=== PATIENT | female | born 1980 | race Caucasian/White ===

== ENCOUNTER 2020-04-17 16:57 | Emergency (ER) | payer OTHER, SELFPAY ==
--- NOTE | ~2020-04-17 | XR_ITS ---
EXAMINATION: XR chest 1V portable DATE: 04/17/2020 19:41 INDICATION: Shortness of breath and cough and fever. TECHNIQUE: A single frontal view of the chest was obtained. COMPARISON: CT abdomen and pelvis 09/04/17 FINDINGS: The chest demonstrates clear lungs without pneumonia, pleural effusion, or pneumothorax. Th e heart size is normal. IMPRESSION: 1. No acute cardiopulmonary disease. Reviewed, dictated and finalized at location A. [employer] [employer]
[2020-04-17 17:18] VITALS: BP 160/104; PULSE 87; RESP 17; TEMP 36.2; O2SAT 99
--- NOTE | 2020-04-17 17:27 | ECG_ITS ---
Measurements Intervals [place] Rate: 83 P: 51 DC: 149 QRS: 41 QRSD: 80 T: 71 QT: 340 QTc: 401 Interpretive Statements SINUS RHYTHM POSSIBLE LEFT ATRIAL ENLARGEMENT MINIMAL Q WAVES- HIGH LATERAL LEADS NONSPECIFIC T-WAVE ABNORMALITY- INF/LAT LEADS BASELINE ARTIFACT- I, II, III BORDERLINE ECG Electronically Signed On 04-17-2020 20:01:55 DIRECTOR INTEGRATED by Tyrone Wisdom D.O.
[2020-04-17 17:45] LABS: Basophils Percent Auto 0.4 % (0.2-1.2); Eosinophils Absolute Auto 0.3 K/mm3 (0-0.3); Eosinophils Percent Auto 2.8 % (0-4.4); Hematocrit 29.4 % (37.0-47.0); Hemoglobin 8.2 g/dL (12.0-15.0); Immature Granulocyte Absolute 0.05 K/mm3 (0.00-0.031); Immature Granulocyte Percent A 0.5 % (0-0.5); Lymphocytes Absolute Auto 2.91 K/mm3 (0.9-3.2); Lymphocytes Percent Auto 26.9 % (18.3-44.2); Mean Corpuscular HGB Conc 27.9 g/dl (32-36); Mean Corpuscular Hemoglobin 18.1 pg (26-34); Monocytes Absolute Auto 0.9 K/mm3 (0.1-0.6); Monocytes Percent Auto 7.9 % (2.6-8.5); Neutrophils Absolute Auto 6.7 K/mm3 (1.3-6.7); Neutrophils Percent Auto 61.5 % (45.5-73.1); Platelet Count Result 485 k/mm3 (150-375); Red Blood Count 4.52 M/mm3 (4.2-5.4); Red Cell Distribution Width 21.1 % (11.5-14.5); White Blood Count 10.8 K/mm3 (4.5-10.0)
[2020-04-17 17:52] LABS: Hypochromasia 1+ (NORMAL); Ovalocytes 1+ (NORMAL); Platelet Estimate Increased (Adequate)
[2020-04-17 17:56] LABS: Anion Gap 10 mmol/L (8-16); Blood Urea Nitrogen 13 mg/dL (7-17); Calcium 9.3 mg/dL (8.4-10.2); Carbon Dioxide 25 mmol/L (22-30); Chloride 104 mmol/L (98-107); Estimated CRCL calculation 98 ml/min; Estimated Glomerular Filt Rate > 60; Glucose 110 mg/dL (65-105); Sodium 139 mmol/L (137-145)
[2020-04-17 19:42] VITALS: BP 160/88
[2020-04-17 19:44] VITALS: PULSE 82; RESP 19; O2SAT 100
--- NOTE | 2020-04-17 19:52 | ED.GENADULT ---
HPI - General Adult General Chief complaint: Upper Respiratory Infection <Cecil Jefferson PA-C - Last Filed: 04/17/20 19:58> Stated complaint: sob/fever <Cecil Jefferson PA-C - Last Filed: 04/17/20 19:58> Time Seen by Provider: 04/17/20 19:28 <Cecil Jefferson PA-C - Last Filed: 04/17/20 19:58> Source: patient <Cecil Jefferson PA-C - Last Filed: 04/17/20 19:58> Mode of arrival: ambulatory <Cecil Jefferson PA-C - Last Filed: 04/17/20 19:58> Limitations: no limitations <Cecil Jefferson PA-C - Last Filed: 04/17/20 19:58> History of Present Illness HPI narrative: Patient is a 39-year-old female who presents with 3 to 4 days of upper respiratory symptoms noting productive cough shortness of breath fever chills body aches congestion patient notes possible exposure to Covid patient notes she had had some loose stools denies vomiting patient on arrival resting comfortably in the room in no distress felt appropriate for testing of Covid patient otherwise in no distress does not appear uncomfortable <Cecil Jefferson PA-C - Last Filed: 04/17/20 19:58> Related Data Allergies/adverse reactions: Allergies Allergy/AdvReac Type Severity Reaction Status Date / Time amoxicillin Allergy Unknown Hives Verified 04/17/20 17:22 <Cecil Jefferson PA-C - Last Filed: 04/17/20 19:58> Review of Systems Review of Systems: All systems reviewed & are unremarkable except as noted in HPI and below <Cecil Jefferson PA-C - Last Filed: 04/17/20 19:58> [facility] Past Medical History Medical History: Medical History (Updated 04/17/20 @ 19:57 by Cecil Jefferson PA-C) Anxiety <Cecil Jefferson PA-C - Last Filed: 04/17/20 19:58> Family History Family History: Family History (Updated 08/30/17 @ 08:00 by DOCTOR UNKNOWN) Father Diabetes mellitus Hypertension Mother Diabetes mellitus Hypertension Other Asthma Family history of attention deficit hyperactivity disorder (ADHD) Family history of obesity <Cecil Jefferson PA-C - Last Filed: 04/17/20 19:58> Social History Social History: Social History Smoking status: Former smoker Smoking end date: 05/22/14 <Cecil Jefferson PA-C - Last Filed: 04/17/20 19:58> Exam Narrative: Exam Narrative: GENERAL: Well-appearing, obese, and in no acute distress. HEAD: Normocephalic, atraumatic. EYES: PERRLA and EOMI. ENT: Nares clear, no rhinorrhea or epistaxis. Mucous membranes moist. CHEST: Clear to auscultation. No respiratory distress. No wheezes rales or rhonchi HEART: Regular rate and rhythm. No murmur heard. EXTREMITIES: Normal range of motion. No edema. SKIN: Warm, dry, no rash. NEURO: No focal deficits. Alert and oriented x3. Cranial nerves II through XII grossly intact PSYCH: Normal mood and affect. <Cecil Jefferson PA-C - Last Filed: 04/17/20 19:58> Course Course Emergency Course: Patient in the room in no distress will be tested for Covid no pneumonia or hypoxemia seen on exam felt appropriate for outpatient reevaluation will contact her primary care to get her results patient also provided with reasons to return and will be treated symptomatically <Cecil Jefferson PA-C - Last Filed: 04/17/20 19:58> Vital Signs Vital signs: Vital Signs Temperature 36.2 C L 04/17/20 17:18 Pulse Rate 87 04/17/20 17:18 Respiratory Rate 17 04/17/20 17:18 Blood Pressure 160/104 H 04/17/20 17:18 Pulse Oximetry 99 04/17/20 17:18 Temperature 36.2 C L 04/17/20 17:18 Pulse Rate 79 04/17/20 20:10 Respiratory Rate 17 04/17/20 20:10 Blood Pressure 157/80 H 04/17/20 20:10 Pulse Oximetry 98 04/17/20 20:10 <Cecil Jefferson PA-C - Last Filed: 04/17/20 19:58> Vital Signs Temperature 36.2 C L 04/17/20 17:18 Pulse Rate 87 04/17/20 17:18 Respiratory Rate 17 04/17/20 17:18 Blood Pressure 160/104 H 03/23
[2020-04-17 20:10] VITALS: BP 157/80; PULSE 79; RESP 17; O2SAT 98
[2020-04-18 13:43] LABS: SARS-CoV-2 RNA PCR Negative
== END 2020-04-17 20:10 | disposition home or self-care (01) ==
PROVIDERS: Emergency Medicine; Emergency Medicine Emergency Medical Services; Emergency Provider Emergency Medicine
DX: J06.9 Acute upper respiratory infection, unspecified (principal); Z20.828 Contact with and (suspected) exposure to other viral communicable diseases; R94.31 Abnormal electrocardiogram [ECG] [EKG]
CPT/HCPCS: 36415; 71045; 80048; 85025; 87635; 93005; 99283; C9803; U0003

== ENCOUNTER 2020-07-20 14:58 | Observation (INO) | payer OTHER, SELFPAY ==
[2020-07-20] VITALS (22 sets, daily range): BP systolic 122–160; BP diastolic 57–117; PULSE 80–102; RESP 15–23; TEMP 36.3–37.2; O2SAT 99–100; BMI 49.8
--- NOTE | ~2020-07-20 | CT_ITS ---
EXAMINATION: CT abdomen pelvis w con EXAM DATE: 07/20/2020 16:56 INDICATION: Abdominal pain, hematochezia. Rectal bleeding. TECHNIQUE: Spiral CT of the abdomen and pelvis was performed following intravenous injection of 100 m L Omnipaque 350. Axial, coronal and sagittal images were reviewed. The dose-length product (DLP) fo r this examination was 1501.20 mGy-cm. The exposure was tailored according to patient size (auto mA exposure control), and iterative reconstruction (ASIR) was used as additional dose reduction techniqu e. Comparison is made to prior examination from 09/04/2017. FINDINGS: The liver, spleen, adrenal glands and pancreas are unremarkable. Gallbladder is unremarkab le. No biliary obstruction. Portal and splenic veins are patent. Kidneys enhance symmetrically. T here is no hydronephrosis. The uterus is unremarkable. The bladder is unremarkable. There is no retroperitoneal or pelvic lymphadenopathy. Small umbilical fat-containing hernia. The appendix is normal. There is mild descending, sigmoid colonic diverticulosis. There is no adjace nt inflammatory change to suggest diverticulitis. The stomach and small bowel are unremarkable. Ther e is expected amount of colonic stool. No free intraperitoneal gas. The heart is normal in size. There are no pericardial or pleural effusions. The lung bases are unremarkable. There are no osteo blastic or osteolytic lesions identified. IMPRESSION: 1. No acute intra-abdominal findings. 2. Mild colonic diverticulosis. Reviewed, dictated and finalized at location A. SAWYER
[2020-07-20 15:23] LABS: Basophils Absolute Auto 0.1 K/mm3 (0.0-0.1); Basophils Percent Auto 0.5 % (0.2-1.2); Eosinophils Absolute Auto 0.3 K/mm3 (0-0.3); Eosinophils Percent Auto 2.9 % (0-4.4); Hematocrit 23.2 % (37.0-47.0); Immature Granulocyte Absolute 0.08 K/mm3 (0.00-0.031); Immature Granulocyte Percent A 0.8 % (0-0.5); Lymphocytes Absolute Auto 2.42 K/mm3 (0.9-3.2); Lymphocytes Percent Auto 23.9 % (18.3-44.2); Mean Corpuscular HGB Conc 27.6 g/dl (32-36); Mean Corpuscular Hemoglobin 19.5 pg (26-34); Mean Corpuscular Volume 70.5 fl (80-100); Mean Platelet Volume 9.7 fl (7.4-10.4); Monocytes Absolute Auto 0.8 K/mm3 (0.1-0.6); Monocytes Percent Auto 7.5 % (2.6-8.5); Neutrophils Absolute Auto 6.5 K/mm3 (1.3-6.7); Neutrophils Percent Auto 64.4 % (45.5-73.1); Nucleated Red Blood Cells Perc 0.2 % (0.0-0.2); Platelet Count Result 416 k/mm3 (150-375); Red Blood Count 3.29 M/mm3 (4.2-5.4); Red Cell Distribution Width 20.2 % (11.5-14.5); White Blood Count 10.1 K/mm3 (4.5-10.0)
[2020-07-20 15:33] LABS: Partial Thromboplastin Time 23.6 SECONDS (22.3-36.8); Prothrombin Time 13.5 Seconds (11.1-14.7)
[2020-07-20 15:35] LABS: Hemoglobin 6.4 g/dL (12.0-15.0)
[2020-07-20 15:36] LABS: Hypochromasia 2+ (NORMAL); Microcytosis 1+ (NORMAL); Platelet Estimate Adequate (Adequate)
[2020-07-20 15:38] LABS: Alanine Aminotransferase 16 U/L (4-35); Alkaline Phosphatase 74 U/L (38-126); Anion Gap 6 mmol/L (8-16); Aspartate Amino Transferase 19 U/L (14-36); Bilirubin,Total 0.3 mg/dL (0.2-1.3); Blood Urea Nitrogen 9 mg/dL (7-17); Calcium 8.9 mg/dL (8.4-10.2); Carbon Dioxide 28 mmol/L (22-30); Chloride 106 mmol/L (98-107); Estimated CRCL calculation 82 ml/min; Estimated Glomerular Filt Rate > 60; Glucose 125 mg/dL (65-105); Potassium 3.9 mmol/L (3.4-5.0); Sodium 140 mmol/L (137-145)
--- NOTE | 2020-07-20 16:26 | ED.GIBLEED ---
HPI - GI Bleed General Chief complaint: GI Bleed <Cherry Linares PA-C - Last Filed: 07/20/20 18:58> Stated complaint: rectal bleeding <Cherry Linares PA-C - Last Filed: 07/20/20 18:58> Time Seen by Provider: 07/20/20 16:10 <Cherry Linares PA-C - Last Filed: 07/20/20 18:58> Source: patient <Cherry iLnares PA-C - Last Filed: 07/20/20 18:58> Mode of arrival: ambulatory <Cherry Linares PA-C - Last Filed: 07/20/20 18:58> Limitations: no limitations <Cherry Linares PA-C - Last Filed: 07/20/20 18:58> History of Present Illness HPI Narrative: This is a 39 year old female that presents to the ER for bright red blood per rectum x 2 weeks. Associated with loose stools and intermittent crampy abdominal pain. Does report history of hemorrhoids. She reports she has also been getting lightheaded upon standing the last couple of days. Denies fever, nausea, or vomiting. <Cherry Linares PA-C - Last Filed: 07/20/20 18:58> Related Data Allergies/Adverse reactions: Allergies Allergy/AdvReac Type Severity Reaction Status Date / Time amoxicillin Allergy Unknown Hives Verified 07/20/20 15:15 <Cherry Linares PA-C - Last Filed: 07/20/20 18:58> Review of Systems Review of Systems: Narrative: CONSTITUTIONAL: Denies fever GASTROINTESTINAL: Reports abdominal pain, and diarrhea. Denies nausea or vomiting <Cherry Linares PA-C - Last Filed: 07/20/20 18:58> All systems reviewed & are unremarkable except as noted in HPI and below <Cherry Linares PA-C - Last Filed: 07/20/20 18:58> [facility] Past Medical History Medical History: Medical History (Updated 07/20/20 @ 18:31 by Cherry Linares PA-C) Anxiety <Cherry Linares PA-C - Last Filed: 07/20/20 18:58> Family History Family History: Family History (Updated 08/30/17 @ 08:00 by DOCTOR UNKNOWN) Father Diabetes mellitus Hypertension Mother Diabetes mellitus Hypertension Other Asthma Family history of attention deficit hyperactivity disorder (ADHD) Family history of obesity <Cherry Linares PA-C - Last Filed: 07/20/20 18:58> Social History Social History: Social History Smoking status: Former smoker Smoking end date: 05/22/14 Gender identity (if verbalized by the patient): Female <Cherry Linares PA-C - Last Filed: 07/20/20 18:58> Exam Narrative: Exam Narrative: GENERAL: Pale, well-nourished, and in no acute distress. HEAD: Normocephalic, atraumatic. EYES: EOMI. ENT: Mucous membranes moist. Oropharynx without tonsillar hypertrophy exudate or other lesions. NECK: Supple. No adenopathy or masses. CHEST: Clear to auscultation. No respiratory distress. No wheezes rales or rhonchi HEART: Regular rate and rhythm. No murmur heard. Normal peripheral pulses. ABDOMEN: Soft, nondistended, normal active bowel sounds. Mild tenderness to palpation throughout the right side of the abdomen, without guarding EXTREMITIES: Normal range of motion. No edema. SKIN: Warm, dry, no rash. NEURO: No focal deficits. Alert and oriented x3. PSYCH: Normal mood and affect <Cherry Linares PA-C - Last Filed: 07/20/20 18:58> Course HEAD INSULATION BOARD SAW OPERATOR/PA Physician Supervision For this patient encounter, I reviewed the HEAD INSULATION BOARD SAW OPERATOR or PA documentation, treatment plan, and medical decision making; and I had [id number] time with this patient. <Veronica Gomez MD - Last Filed: 07/20/20 19:02> Consultations Consultation #1: Spoke with Dr. Amanda about patient and work-up. Would like patient to be given GoLYTELY and Dulcolax and be made n.p.o. at midnight for EGD and colonoscopy tomorrow. Patient will also be started on Protonix. He will consult <Cherry Linares PA-C - Last Filed: 03/01/21 18:58> Vital Signs Vital signs: Vital Signs Temperature 36.3 C L 07/20/20 15:11 Pulse Rate 102 H 07/20/20 15:11 Respiratory Rate 20 07/20/20 15:11 Blood Pressur
--- NOTE | 2020-07-20 16:34 | PC.NURSE ---
pt states is no way she is and will sign waiver
[2020-07-20] MEDS: PANTOPRAZOLE SODIUM IV 40 MG VIAL 80 MG IV PUSH (19:35)
[2020-07-20] MEDS: BISACODYL 10 MG SUPPOSITORY RECTAL (19:35)
--- NOTE | 2020-07-20 19:56 | PC.NURSE ---
Assumed care of pt. this time. Report from YASSINE Crump
--- NOTE | 2020-07-20 20:15 | ADMGEN ---
This patient, Amarilys Jerez, was admitted to Medical Room 342-01. Patient/family oriented to hospital policies and general routines including ID bracelet, bed and alarms, visiting hours, pain management, procedures, bathroom and other care routines, personal items, smoking policy, room service/diet, and visiting hours. Information on how to activate the Rapid Response Team has been discussed. Patient/Family are encouraged to report perceived risks to care and to ask questions if they do not understand what they are told or what they should do.
[2020-07-20] MEDS: polyethylene glycoL 3350 238 GM BOTTLE PO (20:17)
[2020-07-20] MEDS: SODIUM CHLORIDE 0.9% IV 250 ML 30 ML IV CONT (20:17)
[2020-07-21] VITALS (12 sets, daily range): BP systolic 98–156; BP diastolic 49–88; PULSE 66–85; RESP 12–21; TEMP 35.8–36.6; O2SAT 95–100
[2020-07-21] MEDS: ONDANSETRON INJ 4 MG/2 ML VIAL IV PUSH (01:13)
[2020-07-21 02:04] LABS: Hemoglobin 8.6 g/dL (12.0-15.0)
[2020-07-21 05:58] LABS: Hematocrit 28.1 % (37.0-47.0); Hemoglobin 8.4 g/dL (12.0-15.0)
[2020-07-21 06:18] LABS: Anion Gap 5 mmol/L (8-16); Blood Urea Nitrogen 9 mg/dL (7-17); Calcium 8.6 mg/dL (8.4-10.2); Carbon Dioxide 28 mmol/L (22-30); Chloride 107 mmol/L (98-107); Estimated CRCL calculation 119 ml/min; Estimated Glomerular Filt Rate > 60; Glucose 110 mg/dL (65-105); Potassium 4.1 mmol/L (3.4-5.0); Sodium 140 mmol/L (137-145)
[2020-07-21 07:08] LABS: Ferritin 5.74 ng/mL (6.24-137)
[2020-07-21] MEDS: PANTOPRAZOLE SODIUM IV 40 MG VIAL IV PUSH (08:53)
[2020-07-21] MEDS: FLUTICASONE PROPIONATE 0.05% NA SPR 16 GM BTL (*BKC) 2 SPRAY NASAL (10:21)
[2020-07-21] MEDS: SODIUM CHLORIDE 0.9% INJ 10 ML 100 ML (10:22)
[2020-07-21] MEDS: LACTATED RINGERS 1,000 ML 150 ML IV CONT ×2 (11:07→12:32)
--- NOTE | 2020-07-21 11:14 | WPDGICN ---
Assessment and Plan Assessment and plan (1) GI bleed: Qualifiers: GI bleed type/associated pathology: unspecified gastrointestinal hemorrhage type Qualified Code(s): K92.2 - Gastrointestinal hemorrhage, unspecified Code(s): K92.2 - Gastrointestinal hemorrhage, unspecified Status: Acute Assessment and Plan: will proceed with colonoscopy to assess source of bleeding (differential include AVM's, diverticular bleed, colitis or even malignancy), also EGD because patient required blood transfusion and had symptomatic anemia, also need to rule out upper GI source (2) Acute blood loss anemia: Code(s): D62 - Acute posthemorrhagic anemia Status: Acute Assessment and Plan: she already received blood transfusion continue to monitor for more signs of bleeding more recommendations after scopes today (3) Rectal bleeding: Code(s): K62.5 - Hemorrhage of anus and rectum Status: Acute (4) Bloating: Code(s): R14.0 - Abdominal distension (gaseous) Status: Acute Assessment and Plan: will do EGD as well (5) Nausea: Code(s): R11.0 - Nausea Status: Acute (6) Lower abdominal pain: Code(s): R10.30 - Lower abdominal pain, unspecified Status: Acute Assessment and Plan: CT scan without colitis GI Consult Note Consult date/time: 07/21/20 11:14 Reason for consult: rectal bleeding, symptomatic anemia HPI: Amarilys Jerez is a 39 year old female with no major medical problems with almost 2 weeks on bright red blood per rectum, also noted intermittent loose stools with intermittent moderate crampy abdominal pain and bloating, she also was nauseous but no vomiting. She thinks that had hemorrhoids but never had scopes. Also was feeling weak and lightheaded, finally decided to come here. Denies heavy uterine bleeding. Denies using nsaid's, seldom will take aspirin. ER labs reviewed, microcytosis, hb 6.4 and received 2 units of PRBC now hb 8.6. CT scan reviewed without acute intra-abdominal findings, mild colonic diverticulosis. Review of Systems Constitutional: Constitutional: Reports fatigue Eyes: Eyes: Reports no additional eye complaints ENT: Reports system reviewed and no additional complaints, except as documented Cardiovascular: Cardiovascular: Denies chest pain Respiratory: Respiratory: Reports no additional respiratory complaints Gastrointestinal: Gastrointestinal: Reports abdominal pain, Reports hematochezia and Reports nausea Genitourinary: Genitourinary: Denies hematuria Musculoskeletal: Musculoskeletal: Denies neck pain Integumentary/Breasts: Skin/Breast: Denies rash Neurologic: Denies confusion Comments: lightheadedness Psychiatric: Psychiatric: Denies behavioral changes Endocrine: Endocrine: Denies cold intolerance PMFSH Past Medical History Medical History (Updated 07/21/20 @ 11:18 by Raf Greene MD) Acute blood loss anemia Anxiety Bloating Lower abdominal pain Nausea Rectal bleeding Family History Family History Father Diabetes mellitus Hypertension Mother Diabetes mellitus Hypertension Other Asthma Family history of attention deficit hyperactivity disorder (ADHD) Family history of obesity Social History Social History Smoking status: Never smoker Second hand tobacco smoke exposure: Yes Smoking end date: 05/22/14 Alcohol intake: never Substance use: never Substance use type: does not use Gender identity (if verbalized by the patient): Female Spiritual care concerns: No Meds Home Medications and Allergies Home Medications Medication Instructions Recorded Confirmed Type fluticasone propionate [Flonase 2 spray INTRANASAL DAILY #9.9 ml 04/17/20 07/20/20 Rx Allergy Relief] venlafaxine [Effexor XR] 150 mg PO DAILY 07/20/20 07/20/20
--- NOTE | 2020-07-21 11:31 | WPDANESEPPF ---
Anes - Initial Pre Proc Eval Procedure: Operation Date: 07/21/20 15:15 Proposed Procedures p Esophagogastroduodenoscopy & Colonoscopy - Raf Greene MD Date/Time: 07/21/20 11:31 Surgeon: Ivet Tiwari PA-C Pre Op Diagnosis: GI Bleed, anemia Patient Data Age: 39 Gender: F Height: 5 ft 3 in Weight: 127.6 kg Last Vital Signs Temp 97.8 F 07/21/20 11:00 Pulse 66 07/21/20 11:00 Resp 12 07/21/20 11:00 BP 144/75 H 07/21/20 11:00 Pulse Ox 100 07/21/20 11:00 Allergies Allergy/AdvReac Type Severity Reaction Status Date / Time amoxicillin Allergy Unknown Hives Verified 07/21/20 10:54 Home Medications Medication Instructions Recorded Confirmed Type fluticasone propionate [Flonase 2 spray INTRANASAL DAILY #9.9 ml 04/17/20 07/20/20 Rx Allergy Relief] venlafaxine [Effexor XR] 150 mg PO DAILY 07/20/20 07/20/20 History Laboratory Tests 07/20/20 07/20/20 07/20/20 15:17 15:17 15:17 WBC 10.1 K/mm3 H K/mm3 (4.5-10.0) RBC 3.29 M/mm3 L M/mm3 (4.2-5.4) Hgb 6.4 g/dL L* g/dL (12.0-15.0) Hct 23.2 % L % (37.0-47.0) MCV 70.5 fl L fl (80-100) MCH 19.5 pg L pg (26-34) MCHC 27.6 g/dl L g/dl (32-36) RDW 20.2 % H % (11.5-14.5) Plt Count 416 k/mm3 H k/mm3 (150-375) MPV 9.7 fl fl (7.4-10.4) Immature Gran % (Auto) 0.8 % H % (0-0.5) Neut % (Auto) 64.4 % % (45.5-73.1) Lymph % (Auto) 23.9 % % (18.3-44.2) [place] % (Auto) 7.5 % % (2.6-8.5) Eos % (Auto) 2.9 % % (0-4.4) Baso % (Auto) 0.5 % % (0.2-1.2) Lymph # (Auto) 2.42 K/mm3 K/mm3 (0.9-3.2) [place] # (Auto) 0.8 K/mm3 H K/mm3 (0.1-0.6) Eos # (Auto) 0.3 K/mm3 K/mm3 (0-0.3) Baso # (Auto) 0.1 K/mm3 K/mm3 (0.0-0.1) Abs Immat Gran (auto) 0.08 K/mm3 H K/mm3 (0.00-0.031) Absolute Neuts (auto) 6.5 K/mm3 K/mm3 (1.3-6.7) Absolute Nucleated RBC 0.0 K/mm3 K/mm3 (0.0-0.012) Nucleated RBC % 0.2 % % (0.0-0.2) Platelet Estimate Adequate (Adequate) Hypochromasia 2+ (NORMAL) Microcytosis 1+ (NORMAL) PT 13.5 Seconds Seconds (11.1-14.7) INR 1.0 APTT 23.6 SECONDS SECONDS (22.3-36.8) Sodium 140 mmol/L mmol/L (137-145) Potassium 3.9 mmol/L mmol/L (3.4-5.0) Chloride 106 mmol/L mmol/L (98-107) Carbon Dioxide 28 mmol/L mmol/L (22-30) Anion Gap 6 mmol/L L mmol/L (8-16) BUN 9 mg/dL mg/dL (7-17) Creatinine 1.00 mg/dL mg/dL (0.7-1.0) Estim Creat Clear Calc 82 ml/min ml/min Estimated GFR > 60 (59 - ) Glucose 125 mg/dL H mg/dL (65-105) Calcium 8.9 mg/dL mg/dL (8.4-10.2) Magnesium Ferritin Total Bilirubin 0.3 mg/dL mg/dL (0.2-1.3) AST 19 U/L U/L (14-36) ALT 16 U/L U/L (4-35) Alkaline Phosphatase 74 U/L U/L (38-126) Total Protein 8.0 g/dL g/dL (6.3-8.2) Albumin 4.0 g/dL g/dL (3.5-5.1) TSH (Reflex) Blood Type Antibody Screen Crossmatch 07/20/20 07/21/20 07/21/20 15:17 01:54 05:38 WBC RBC Hgb 8.6 g/dL L g/dL 8.4 g/dL L g/dL (12.0-15.0) (12.0-15.0) Hct 29.0 % L % 28.1 % L % (37.0-47.0) (37.0-47.0) MCV MCH MCHC RDW Plt Count MPV Immature Gran % (Auto) Neut % (Auto) Lymph % (Auto) [place] % (Auto) Eos % (Auto) Baso % (Auto) Lymph # (Auto) [place] # (Auto) Eos # (Auto) Baso # (Auto) Abs Immat Gran (auto) Abso
[2020-07-21] MEDS: BENZOCAINE (*SP) 60 ML SPRAY CAN (HURRICAINE) 1 SPRAY MUCOUS MEM (11:57)
[2020-07-21] MEDS: VENLAFAXINE HCL XR 75 MG CAP.ER.24H 150 MG PO (13:25)
--- NOTE | 2020-07-21 14:30 | PC.NURSE ---
Supervised patient care and reviewed documentation for COUNT INCLUDES THE [facility] Student nurse Leah Quintanilla
[2020-07-21 15:02] LABS: Hematocrit 28.9 % (37.0-47.0); Hemoglobin 8.6 g/dL (12.0-15.0)
--- NOTE | 2020-07-21 16:36 | PM.SD2 ---
Same Day Admit/Disch: HPI History of Present Illness Chief complaint: GI Bleed, anemia Narrative: Amarilys Jerez is a 39 year old female with a history of fibromyalgia, anxiety, dyslipidemia, presented to the emergency room for dark tarry stools for the last 2 weeks. Patient does have a history of hemorrhoids, but states her stools have been dark in nature as well as passing clots. She has had similar issues in the past but it has only occurred for a couple a days, and this episode has been waxing and waning over the last few weeks. She does have a history of constipation, but denies any increased straining recently. She has been feeling abdominal bloating and intermittent cramping. She came into the emergency room because of increased fatigue, lightheadedness and was feeling slightly disoriented. She also reported some shortness of breath with exertion and intermittent nausea associated with her bloatedness. She denies any history of heartburn, GERD, vomiting, or any other symptoms. Denies any chest pain, fever, chills, dizziness, diarrhea, leg swelling, calf pain, urinary issues, vaginal bleeding, or any other symptoms at this time. Initially vitals showed she was afebrile, blood pressure slightly elevated 146/78, slightly tachycardic at 102, respiratory rate 20, oxygen saturation 99% on room air. Initial labs showed slight leukocytosis at 10,100, no elevated neutrophils for signs of infection, critical microcytic anemia with a hemoglobin of 6.4, hematocrit 23%. Normal coag panel. Normal CMP. CT abdomen/pelvis showed no acute intracranial abdominal findings. Mild colonic diverticulosis. Patient was admitted to the hospital for acute anemia due to GI bleeding. Patient had 2 units of PRBCs infused. GI was consulted and she was prepped for an EGD and colonoscopy on 07/21/2020. EGD showed gastric ulcer which can explain her anemia. There is no signs of active bleeding during EGD. Recommended PPI 40 mg b.i.d. and to avoid NSAIDs or aspirin. Colonoscopy was completed showing diverticulosis without perforation, abscess or bleeding. Internal hemorrhoids and anal skin tags were also noted but no active bleeding. Dr. Vasiliy FRASER recommended Anusol Supp BID for 7 days. After her procedure her diet was advanced without any issues. She was feeling much better. Her H&H was stable with a hemoglobin of 8.6, hematocrit 28%. Patient is feeling much better and stable for discharge at this time to follow-up with the GI specialist in 3 weeks. Recommended to start iron supplementation twice daily. Will recheck CBC in 2 weeks prior to her GI follow-up. Patient understands and agrees with the plan all questions answered. [facility] Past Medical History Medical History (Updated 07/21/20 @ 16:40 by Ivet Tiwari PA-C) Acute blood loss anemia Allergies Anxiety Bloating Fibromyalgia HLD (hyperlipidemia) Leg edema Lower abdominal pain Nausea Rectal bleeding Surgical History Surgical History (Updated 07/21/20 @ 16:40 by Ivet Tiwari PA-C) H/O tubal ligation History of endometrial ablation Hx of arthroscopic knee surgery Right knee 2003 Family History Family History Father Diabetes mellitus Hypertension Mother Diabetes mellitus Hypertension Other Asthma Family history of attention deficit hyperactivity disorder (ADHD) Family history of obesity Social History Social History (Updated 07/21/20 @ 16:40 by Ivet Tiwari PA-C) Smoking status: Former smoker Second hand tobacco smoke exposure: Yes Smoking end date: 05/22/14 Alcohol intake: never Substance use: never Substance use type: does not use Additional living arrangements comments: Lives in [place], [place] Occupation/Education: occupation Additional occupation/education comments: 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
== END 2020-07-21 17:30 | disposition home or self-care (01) ==
LOC: ANHED 18:56 → ANH3MED 20:04
PROVIDERS: Internal Medicine Gastroenterology; Nurse Practitioner; Admitting Provider Family Medicine; Emergency Provider Emergency Medicine; Visit Provider Physician Assistant
PROC: 0DJ08ZZ Inspection of Upper Intestinal Tract, Via Natural or Artificial Opening Endoscopic (ICD-10-PCS; CPT 43235; principal; 2020-07-21 15:15)
DX: K92.2 Gastrointestinal hemorrhage, unspecified (principal); D62 Acute posthemorrhagic anemia; K64.4 Residual hemorrhoidal skin tags; K64.8 Other hemorrhoids; E78.5 Hyperlipidemia, unspecified; Z87.891 Personal history of nicotine dependence
CPT/HCPCS: 45378; 43239; 36415; 36430; 74177; 80048; 80053; 82728; 83735; 84443; 85014; 85018; 85025; 85610; 85730; 86850; 86900; 86901; 86920; 87081; 88305; 96361; 96374; 96375; 99285; A9270; C9113; G0378; G0379; J0131; J2001; J2405; J2704; J7050; J7120; P9016; Q9967

== ENCOUNTER 2021-10-12 09:36 | Emergency (ER) | payer OTHER, SELFPAY ==
[2021-10-12 09:38] VITALS: BP 155/93; PULSE 100; RESP 18; TEMP 36.2; O2SAT 100
--- NOTE | 2021-10-12 10:32 | ED.GENADULT ---
HPI - General Adult General Chief complaint: Upper Respiratory Infection Stated complaint: hives Time Seen by Provider: 10/12/21 09:59 History of Present Illness HPI narrative: 41-year-old female presents emergency room complaints of acute onset of a rash that began this morning. Patient states that she was seen at a local urgent care yesterday for upper respiratory symptoms, and was evaluated for COVID and influenza. Both were negative. Patient states she continues to have sinus congestion, PND, productive cough, sore throat, diarrhea. Rash is on her torso, neck, and UE's. Denies fever, body aches. Related Data Home Medications Medication Instructions Recorded Confirmed venlafaxine 150 mg 150 mg PO DAILY 07/20/20 07/20/20 capsule,extended release 24 hr (Effexor XR) Allergies Allergy/AdvReac Type Severity Reaction Status Date / Time amoxicillin Allergy Unknown Hives Verified 10/12/21 10:28 Review of Systems Review of Systems: CONSTITUTIONAL: Denies fever, chills, or sweats. EYES: Denies visual changes, redness, or discharge. ENT: Reports rhinorrhea, congestion, sore throat CARDIOVASCULAR: Denies chest pain, palpitations, or edema. RESPIRATORY: Reports productive cough GASTROINTESTINAL: Denies abdominal pain, nausea, vomiting, or diarrhea. GENITOURINARY: Denies dysuria or hematuria. SKIN: Ports rash MUSCULOSKELETAL: Denies back pain, joint pain, or myalgia. NEUROLOGIC: Denies headache, numbness, dizziness, or weakness. PSYCHIATRIC: Denies anxiety or depression. [facility] Past Medical History Medical History Acute blood loss anemia Allergies Anxiety Bloating Fibromyalgia HLD (hyperlipidemia) Leg edema Lower abdominal pain Nausea Rectal bleeding Surgical History Surgical History H/O tubal ligation History of endometrial ablation Hx of arthroscopic knee surgery Right knee 2003 Family History Family History Father Diabetes mellitus Hypertension Mother Diabetes mellitus Hypertension Other Asthma Family history of attention deficit hyperactivity disorder (ADHD) Family history of obesity Social History Social History Smoking status: Former smoker Second hand tobacco smoke exposure: Yes Smoking end date: 05/22/14 Alcohol intake: never Substance use: never Substance use type: does not use Additional living arrangements comments: Lives in [place], [place] Additional occupation/education comments: 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 HEAD: Normocephalic, atraumatic. EYES: PERRLA and EOMI. ENT: Nares clear, no rhinorrhea or epistaxis. Mucous membranes moist. Oropharynx without tonsillar hypertrophy exudate or other lesions. Bilateral TMs pearly hernandez nonbulging CHEST: Clear to auscultation. No respiratory distress. No wheezes rales or rhonchi HEART: Regular rate and rhythm. No murmur heard. Normal peripheral pulses. ABDOMEN: Soft, nontender, nondistended, normal active bowel sounds. EXTREMITIES: Normal range of motion. No edema. SKIN: Erythematous, maculopapular rash noted to the posterior cervical spine, anterior/posterior torso, upper extremities NEURO: No focal deficits. Alert and oriented x3. PSYCH: Normal mood and affect. Course Vital Signs Vital signs: Vital Signs Temperature 36.2 C L 10/12/21 09:38 Pulse Rate 100 10/12/21 09:38 Respiratory Rate 18 10/12/21 09:38 Blood Pressure 155/93 H 10/12/21 09:38 Pulse Oximetry 100 10/12/21 09:38 Oxygen Delivery Room Air 10/12/21 09:38 Temperature 36.2 C L 10/12/21 09:38 Pulse Rate 92 10/12
[2021-10-12] MEDS: diphenhydrAMINE HCl INJ 50 MG/ML VIAL 25 MG IV PUSH (10:45)
[2021-10-12] MEDS: methylPREDNISolone SOD SUCC 125 MG VIAL IV PUSH (10:45)
[2021-10-12] MEDS: SODIUM CHLORIDE 0.9% IV 1,000 ML 999 ML IV CONT (10:46)
[2021-10-12] MEDS: FAMOTIDINE 20 MG/2 ML VIAL IV PUSH (10:46)
[2021-10-12 11:19] LABS: SARS-CoV-2 RNA PCR Negative
[2021-10-12 12:05] VITALS: BP 148/83; PULSE 92; RESP 15; O2SAT 98
[2021-10-12 12:22] VITALS: BP 144/69; PULSE 82; RESP 19; O2SAT 100
== END 2021-10-12 12:24 | disposition home or self-care (01) ==
PROVIDERS: Emergency Provider Nurse Practitioner Family
DX: R21 Rash and other nonspecific skin eruption (principal); J06.9 Acute upper respiratory infection, unspecified; Z20.822 Contact with and (suspected) exposure to COVID-19; M79.7 Fibromyalgia; E78.5 Hyperlipidemia, unspecified; Z87.891 Personal history of nicotine dependence
CPT/HCPCS: 96361; 96374; 96375; 99284; C9803; J1200; J2930; J7030; U0003; U0005

== ENCOUNTER 2023-01-27 07:39 | Emergency (ER) | payer MEDICAID, SELFPAY ==
--- NOTE | ~2023-01-27 | US_ITS ---
EXAMINATION: US venous doppler [facility] DATE: 01/27/2023 09:18 INDICATION: Bilateral lower limb swelling TECHNIQUE: Foley scale images without and with compression and Doppler images of the bilateral lower e xtremity veins were obtained. COMPARISON: None FINDINGS: The right common femoral vein, profunda femoral vein, femoral vein, popliteal vein, peroneal trunk, p osterior tibial veins, and greater saphenous vein are patent. The left common femoral vein, profunda femoral vein, femoral vein, popliteal vein, peroneal trunk, po sterior tibial veins, and greater saphenous vein are patent. IMPRESSION: 1. Patent bilateral lower extremity veins. No evidence of deep venous thrombosis. Reviewed, dictated and finalized at location B. IMPRESSION: 1. Patent bilateral lower extremity veins. No evidence of deep venous thrombosi s.
--- NOTE | ~2023-01-27 | XR_ITS ---
EXAMINATION: XR chest 2V DATE: 01/27/2023 08:10 INDICATION: Shortness of breath. TECHNIQUE: Frontal and lateral views of the chest were obtained. COMPARISON: Chest single view 04/17/2020, CT abdomen and pelvis 07/20/2020 FINDINGS: There is no pneumonia, pleural effusion, or pneumothorax. The heart size is normal. Again s een is a small calcification versus radiopaque foreign body in left anterior chest wall. IMPRESSION: 1. No acute cardiopulmonary disease. Reviewed, dictated and finalized at location A.
[2023-01-27 07:44] VITALS: BP 159/74; PULSE 86; RESP 21; TEMP 36.5; O2SAT 100
--- NOTE | 2023-01-27 07:49 | ECG_ITS ---
Measurements Intervals [place] Rate: 85 P: 38 MD: 151 QRS: 32 QRSD: 82 T: 140 QT: 357 QTc: 425 Interpretive Statements SINUS RHYTHM LEFT VENTRICULAR HYPERTROPHY WITH ST-T CHANGE MINIMAL Q WAVES- HIGH LATERAL LEADS BORDERLINE ECG COMPARED TO ECG 04/17/2020 17:33:34 NO SIGNIFICANT CHANGES Electronically Signed On 01-27-2023 7:55:57 CDT by Tyrone Wisdom D.O.
[2023-01-27 07:52] VITALS: O2SAT 100
--- NOTE | 2023-01-27 07:56 | ED_ITS ---
Lymph # (Auto) 2.54 (0.9-3.2) K/mm3 Kinney # (Auto) 1.2 H (0.1-0.6) K/mm3 Eos # (Auto) 0.4 H (0-0.3) K/mm3 Baso # (Auto) 0.1 (0.0-0.1) K/mm3 Abs Immat Gran (auto) 0.07 H (0.00-0.031) K/mm3 Absolute Neuts (auto) 6.2 (1.3-6.7) K/mm3 Absolute Nucleated RBC 0.0 (0.0-0.012) K/mm3 Nucleated RBC % 0.0 (0.0-0.2) % Platelet Estimate Increased (Adequate) Hypochromasia 2+ (NORMAL) Basophilic Stippling 1+ (NORMAL) Anisocytosis 2+ (NORMAL) Microcytosis 2+ (NORMAL) Schistocytes None seen (NORMAL) PT 13.1 (11.1-14.7) Seconds INR 0.9 APTT 27.0 (22.3-36.8) SECONDS Sodium 139 (137-145) mmol/L Potassium 4.4 (3.4-5.0) mmol/L Chloride 106 (98-107) mmol/L Carbon Dioxide 25 (22-30) mmol/L Anion Gap 8 (8-16) mmol/L BUN 12 (7-17) mg/dL Creatinine 0.60 L (0.7-1.0) mg/dL Estim Creat Clear Calc 129 ml/min Estimated GFR > 60 (59 - ) Glucose 101 (65-110) mg/dL Calcium 8.8 (8.4-10.2) mg/dL Total Bilirubin 0.5 (0.2-1.3) mg/dL AST 33 (14-36) U/L ALT 29 (6-35) U/L Alkaline Phosphatase 75 (38-126) U/L Troponin I 0.013 < 0.012 (0.000-0.034) ng/mL NT-Pro-B Natriuret Pep 103 H (19.9-100) pg/mL Total Protein 8.0 (6.3-8.2) g/dL Albumin 4.3 (3.5-5.1) g/dL TSH (Reflex) 1.850 (0.465-4.68) uIU/mL Imaging Data Radiologist's impression: ITS Impressions Chest X-Ray 01/27/23 08:13 IMPRESSION: 1. No acute cardiopulmonary disease. Venous Doppler Study 01/27/23 09:19 IMPRESSION: 1. Patent bilateral lower extremity veins. No evidence of deep venous thrombosis. ECG Data EKG #1: Attestation: I personally reviewed and interpreted this ECG as follows: ECG completion date: 01/27/23 ECG completion time: 07:53 Interpretation: no change compared to EKG 04/12/20 EKG Interpretation: normal rate (85), sinus rhythm, NL axis and other (lateral t wave inversion) Discharge Plan Discharge Clinical Impression: Bilateral leg edema, Anemia Patient Disposition: Home, Self-Care Condition: Stable Instructions: Antibiotic Form, Anemia (ED), Edema (ED) Additional Instructions: I Recommend that you restart iron supplementation. wear compression socks. Call your primary care provider for further follow up . Return to ER if your symptoms worsen Prescriptions: New ferrous sulfate 324 mg (65 mg iron) tablet,delayed release (DR/EC) 324 mg PO DAILY Qty: 30 0RF furosemide 40 mg tablet 40 mg PO DAILY Qty: 7 0RF potassium chloride 10 mEq capsule, extended release 10 meq PO DAILY Qty: 7 0RF No Action venlafaxine [Effexor XR] 150 mg capsule,extended release 24hr 150 mg PO DAILY hydrocortisone acetate [Anusol-HC] 25 mg Suppository 25 mg RECTAL Q12HR 6 Days Qty: 12 0RF pantoprazole 40 mg tablet,delayed release (DR/EC) 40 mg PO BID 30 Days Qty: 60 0RF ferrous sulfate 324 mg (65 mg iron) tablet,delayed release (DR/EC) 324 mg PO BID 30 Days Qty: 60 0RF fluticasone propionate [Flonase Allergy Relief] 50 mcg/actuation spray,suspension 2 spray intranasal DAILY Qty: 9.9 0RF Rx Instructions: administer into each nostril prednisone
--- NOTE | 2023-01-27 07:56 | ED.SOB ---
HPI - SOB/Dyspnea General Chief Complaint: Shortness of Breath/Dyspnea Stated Complaint: bilateral LE swelling and int. SOB Time Seen by Provider: 01/27/23 07:42 Source: patient, RN notes reviewed and old records reviewed Mode of arrival: ambulatory Limitations: no limitations History of Present Illness HPI Narrative: This is a 42 year old female who presents for evaluation of leg swelling and shortness of breath. She has been having bilateral feet and leg swelling starting last Monday. She reports her swelling is continued and it has been constant. She reports having shortness of breath for a few days and she has orthopnea for 2 day. Last night she woke up unable to breath. She also reports chest pain last night as well. She reports years ago she has similar symptoms and she was thought to possibly have CHF. She was on diuretics at that time but she states she has been off for years. She was taken off a medication for ADHD 1 month ago. She is unsure if she ever had stress test , heart catheterization and ECHO. Related Data Home Medications Medication Instructions Recorded Confirmed venlafaxine 150 mg 150 mg PO DAILY 07/20/20 07/20/20 capsule,extended release 24 hr (Effexor XR) Allergies Allergy/AdvReac Type Severity Reaction Status Date / Time amoxicillin Allergy Unknown Hives Verified 01/27/23 07:40 Review of Systems Constitutional: Constitutional: Denies weakness Cardiovascular: Cardiovascular: Reports chest pain, Denies syncope, Denies rapid heart rate, Denies irregular heart rhythm, Reports leg edema and Reports dyspnea Respiratory: Respiratory: Denies chest congestion, Denies hemoptysis, Denies excessive phlegm production and Reports dyspnea Gastrointestinal: Gastrointestinal: Denies abdominal pain, Denies hematochezia, Denies diarrhea and Denies vomiting Genitourinary: Genitourinary: Denies hematuria and Denies dysuria Musculoskeletal: Musculoskeletal: Denies joint swelling, Denies loss of height and Denies muscle weakness Neurologic: Denies syncope, Denies focal weakness and Denies weakness PMFSH Past Medical History Medical History Acute blood loss anemia Allergies Anxiety Bloating Fibromyalgia HLD (hyperlipidemia) Leg edema Lower abdominal pain Nausea Rectal bleeding Surgical History Surgical History H/O tubal ligation History of endometrial ablation Hx of arthroscopic knee surgery Right knee 2003 Family History Family History Father Diabetes mellitus Hypertension Mother Diabetes mellitus Hypertension Other Asthma Family history of attention deficit hyperactivity disorder (ADHD) Family history of obesity Social History Social History Smoking status: Former smoker Second hand tobacco smoke exposure: Yes Smoking end date: 05/22/14 Alcohol intake: never Substance use: never Substance use type: does not use Additional living arrangements comments: Lives in [place], [place] Occupation/Education: occupation Additional occupation/education comments: 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[place], [place]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 [employer] Gender identity (if verbalized by the patient): Female Spiritual care concerns: No Exam Const: General: alert Nutritional Appearance: obese Orientation/consciousness: patient oriented x3 Limitations: no limitations HENMT: Head: normal to inspection Mouth: Yes Normal oral and palatal mucosa present, Yes lip normal and Yes moist mucous membranes Eyes: EOM: EOMs intact bilaterally Chest: Chest palpation & inspection: normal inspection of the chest Resp: Effort & Inspection: normal respiratory effort Auscultation: clear to auscultation bilaterally Cardio: Rate: regular rate Rhythm: regular rhythm Heart sounds: no murmurs GI:
[2023-01-27 07:58] VITALS: PULSE 84
[2023-01-27 08:11] LABS: Basophils Absolute Auto 0.1 K/mm3 (0.0-0.1); Basophils Percent Auto 0.9 % (0.2-1.2); Eosinophils Absolute Auto 0.4 K/mm3 (0-0.3); Eosinophils Percent Auto 3.9 % (0-4.4); Hematocrit 30.7 % (37.0-47.0); Hemoglobin 8.2 g/dL (12.0-15.0); Immature Granulocyte Absolute 0.07 K/mm3 (0.00-0.031); Immature Granulocyte Percent A 0.7 % (0-0.5); Lymphocytes Absolute Auto 2.54 K/mm3 (0.9-3.2); Lymphocytes Percent Auto 24.3 % (18.3-44.2); Mean Corpuscular HGB Conc 26.7 g/dl (32-36); Mean Corpuscular Hemoglobin 18.9 pg (26-34); Mean Corpuscular Volume 70.6 fl (80-100); Mean Platelet Volume 10.3 fl (7.4-10.4); Monocytes Absolute Auto 1.2 K/mm3 (0.1-0.6); Neutrophils Absolute Auto 6.2 K/mm3 (1.3-6.7); Neutrophils Percent Auto 59.2 % (45.5-73.1); Platelet Count Result 462 k/mm3 (150-375); Red Blood Count 4.35 M/mm3 (4.2-5.4); Red Cell Distribution Width 19.9 % (11.5-14.5); White Blood Count 10.4 K/mm3 (4.5-10.0)
[2023-01-27 08:19] LABS: Alanine Aminotransferase 29 U/L (6-35); Albumin Level 4.3 g/dL (3.5-5.1); Alkaline Phosphatase 75 U/L (38-126); Anion Gap 8 mmol/L (8-16); Aspartate Amino Transferase 33 U/L (14-36); Bilirubin,Total 0.5 mg/dL (0.2-1.3); Blood Urea Nitrogen 12 mg/dL (7-17); Calcium 8.8 mg/dL (8.4-10.2); Carbon Dioxide 25 mmol/L (22-30); Chloride 106 mmol/L (98-107); Estimated CRCL calculation 129 ml/min; Estimated Glomerular Filt Rate > 60; Glucose 101 mg/dL (65-110); Potassium 4.4 mmol/L (3.4-5.0); Sodium 139 mmol/L (137-145)
[2023-01-27 08:20] LABS: INR 0.9; Prothrombin Time 13.1 Seconds (11.1-14.7)
[2023-01-27 08:29] VITALS: BP 129/76; PULSE 83; RESP 21; O2SAT 100
[2023-01-27 08:30] LABS: NT Pro B Type Natriuretic Pept 103 pg/mL (19.9-100); Troponin I 0.013 ng/mL (0.000-0.034)
[2023-01-27] MEDS: FUROSEMIDE INJ 40 MG/4 ML VIAL IV PUSH (08:31)
[2023-01-27 08:44] LABS: Anisocytosis 2+ (NORMAL); Basophilic Stippling 1+ (NORMAL); Hypochromasia 2+ (NORMAL); Microcytosis 2+ (NORMAL); Platelet Estimate Increased (Adequate); Schistocytes None Seen (NORMAL)
--- NOTE | 2023-01-27 09:05 | PC.NURSE ---
US at pt bedside
[2023-01-27 10:22] VITALS: BP 150/86; PULSE 76; RESP 17; O2SAT 100
[2023-01-27 11:20] LABS: Troponin I < 0.012 ng/mL (0.000-0.034)
[2023-01-27 11:56] VITALS: BP 148/99; PULSE 81; RESP 18; O2SAT 100
== END 2023-01-27 11:57 | disposition home or self-care (01) ==
PROVIDERS: Emergency Provider General Practice
DX: R60.0 Localized edema (principal); D64.9 Anemia, unspecified; E78.5 Hyperlipidemia, unspecified; Z87.891 Personal history of nicotine dependence
CPT/HCPCS: 36415; 71046; 80053; 83880; 84443; 84484; 85025; 85610; 85730; 93005; 93970; 96374; 99284; J1940

== ENCOUNTER 2023-02-02 06:45 | Emergency (ER) | payer OTHER, MEDICAID, SELFPAY ==
[2023-02-02] VITALS (15 sets, daily range): BP systolic 129–156; BP diastolic 64–97; PULSE 80–99; RESP 14–22; TEMP 36.7; O2SAT 98–100
--- NOTE | ~2023-02-02 | CT_ITS ---
CT of the Abdomen and Pelvis: Indication: Abdominal pain Technique: 2.5 mm axial scans were obtained through the abdomen and pelvis following intravenous adm inistration of 100 cc of Omnipaque 350. Dose reduction technique was used on this scan by utilizing a utomated exposure control and iterative reconstruction technique. The dose-length product (DLP) was 1 585.94 mGy-cm. COMPARISON: 07/20/2020 Findings: Scans through the lung bases are unremarkable. The liver, spleen, pancreas, gallbladder, adrenals and kidneys are within normal limits. No evidence of aortic aneurysm. No lymphadenopathy. There is bowel wall thickening and adjacent inflammatory change at the proximal sigmoid colon, center ed around a diverticulum. No abscess or free air. No bowel obstruction. Images through the pelvis were performed. Urinary bladder unremarkable. No adnexal mass seen. No asci perez. Impression: Acute sigmoid diverticulitis. No abscess or free air. No bowel obstruction. Reviewed, dictated and finalized at [facility]. Impression: Acute sigmoid diverticulitis. No abscess or free air. No bowel obstruction.
[2023-02-02 08:09] LABS: Appearance Urine Clear (Clear); Bilirubin Urine Negative (Negative); Blood Urine Negative (Negative); Color Urine Yellow (Yellow); Glucose Urine UA Negative (Negative); Ketones Urine Negative (Negative); Leukocyte Esterase Ur Negative LEU/UL (Negative); Nitrate Urine Negative (Negative); Protein Urine Negative (Negative); Specific Grav Ur 1.023 (1.001-1.035); Urobilinogen Urine 0.2 mg/dL (<2.0); pH Urine 6.5 (5.0-9.0)
[2023-02-02 08:13] LABS: Add Urine Microscopic? NO
[2023-02-02 08:44] LABS: Basophils Absolute Auto 0.1 K/mm3 (0.0-0.1); Basophils Percent Auto 0.4 % (0.2-1.2); Eosinophils Absolute Auto 0.2 K/mm3 (0-0.3); Hematocrit 33.1 % (37.0-47.0); Hemoglobin 8.9 g/dL (12.0-15.0); Immature Granulocyte Percent A 0.7 % (0-0.5); Lymphocytes Absolute Auto 2.01 K/mm3 (0.9-3.2); Lymphocytes Percent Auto 13.3 % (18.3-44.2); Mean Corpuscular HGB Conc 26.9 g/dl (32-36); Mean Corpuscular Volume 70.6 fl (80-100); Mean Platelet Volume 10.3 fl (7.4-10.4); Monocytes Absolute Auto 1.1 K/mm3 (0.1-0.6); Monocytes Percent Auto 7.5 % (2.6-8.5); Neutrophils Absolute Auto 11.7 K/mm3 (1.3-6.7); Neutrophils Percent Auto 77.1 % (45.5-73.1); Platelet Count Result 529 k/mm3 (150-375); Red Blood Count 4.69 M/mm3 (4.2-5.4); Red Cell Distribution Width 20.9 % (11.5-14.5); White Blood Count 15.1 K/mm3 (4.5-10.0)
[2023-02-02 08:53] LABS: Alanine Aminotransferase 25 U/L (6-35); Albumin Level 4.5 g/dL (3.5-5.1); Alkaline Phosphatase 77 U/L (38-126); Anion Gap 10 mmol/L (8-16); Aspartate Amino Transferase 32 U/L (14-36); Bilirubin,Total 0.8 mg/dL (0.2-1.3); Blood Urea Nitrogen 13 mg/dL (7-17); Calcium 9.3 mg/dL (8.4-10.2); Carbon Dioxide 26 mmol/L (22-30); Chloride 103 mmol/L (98-107); Estimated CRCL calculation 110 ml/min; Estimated Glomerular Filt Rate > 60; Glucose 112 mg/dL (65-110); Lipase 43 U/L (23-300); Potassium 4.2 mmol/L (3.4-5.0); Sodium 139 mmol/L (137-145)
[2023-02-02 09:19] LABS: Anisocytosis 2+ (NORMAL); Hypochromasia 2+ (NORMAL)
[2023-02-02 09:20] LABS: Ovalocytes 1+ (NORMAL); Platelet Estimate Increased (Adequate); Schistocytes None Seen (NORMAL)
--- NOTE | 2023-02-02 10:40 | PCCCNOTE ---
Call received requesting assistance for pt who could not afford antibiotics she was going to be discharged on. Looked up prices and with [facility] card they were going to cost less than $15 combined. Pt stated that was too much for her still. She was asked if she can borrow the money and she said no. I asked how she can afford to eat, and she stated I was amanda disrespectful and she would take care of it. Informed her I was trying to help her problem solve this and she refused any further assistance stating she will take care of it. Nursing staff informed of assistance given.
--- NOTE | 2023-02-02 10:45 | ED.ABDPAIN ---
HPI - Abdominal Pain General Chief Complaint: Abdominal Pain Stated Complaint: lower abd pain Time Seen by Provider: 02/02/23 08:09 History of Present Illness HPI narrative: Pt presents with lower abdominal pain for 4 days getting worse. Pt denies vomiting or fever. Pt said not moving bowels for a few days either. Pt denies fever or vomiting. Related Data Home Medications Medication Instructions Recorded Confirmed venlafaxine 150 mg 150 mg PO DAILY 07/20/20 07/20/20 capsule,extended release 24 hr (Effexor XR) Allergies Allergy/AdvReac Type Severity Reaction Status Date / Time amoxicillin Allergy Unknown Hives Verified 02/02/23 06:46 Review of Systems Review of Systems: All systems reviewed & are unremarkable except as noted in HPI and below PMFSH Past Medical History Medical History Acute blood loss anemia Allergies Anxiety Bloating Fibromyalgia HLD (hyperlipidemia) Leg edema Lower abdominal pain Nausea Rectal bleeding Surgical History Surgical History H/O tubal ligation History of endometrial ablation Hx of arthroscopic knee surgery Right knee 2004 Family History Family History Father Diabetes mellitus Hypertension Mother Diabetes mellitus Hypertension Other Asthma Family history of attention deficit hyperactivity disorder (ADHD) Family history of obesity Social History Social History Smoking status: Former smoker Second hand tobacco smoke exposure: Yes Smoking end date: 05/22/14 Alcohol intake: never Substance use: never Substance use type: does not use Additional living arrangements comments: Lives in [place], [place] Occupation/Education: occupation Additional occupation/education comments: 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[place], [place]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[employer] Gender identity (if verbalized by the patient): Female Spiritual care concerns: No Exam Const: General: healthy appearing Nutritional Appearance: well nourished Orientation/consciousness: patient oriented x3 Limitations: no limitations Chest: Chest palpation & inspection: normal inspection of the chest Resp: Effort & Inspection: normal respiratory effort Auscultation: clear to auscultation bilaterally Cardio: Rate: regular rate Rhythm: regular rhythm GI: Inspection: distended GI Palp: Yes Soft to palpation, Yes Tenderness to palpation present (GI) (llq), No Guarding due to palpation present (GI) and No Rigid due to palpation Auscultation: normal bowel sounds Back/Spine/Pelvis: Back: no CVA tenderness Skin: General skin exam: normal color Rashes: no rashes Wounds: no wounds Neuro: General: patient oriented x3, moves all extremities, no meningeal signs, no focal motor deficits and CN's II-XI intact bilaterally Extrem: General: normal to inspection and edema Psych: Mental Status: mental status grossly normal Affect: normal affect Attitude: cooperative Course Vital Signs Vital signs: Vital Signs Temperature 98.1 F 02/02/23 06:52 Pulse Rate 89 02/02/23 06:52 Respiratory Rate 16 02/02/23 06:52 Blood Pressure 152/85 H 02/02/23 06:52 Pulse Oximetry 100 02/02/23 06:52 Temperature 98.1 F 02/02/23 06:52 Pulse Rate 99 02/02/23 13:29 Respiratory Rate 18 02/02/23 13:29 Blood Pressure 156/78 H 02/02/23 13:29 Pulse Oximetry 100 02/02/23 13:29 MDM - Abdominal Pain MDM Narrative Medical decision making narrative: Pt presents with lower abdominal pain for several days. Pt denies urinary symptoms. Pt denies fever or diarrhea or bloody stools. will need labs and ct could be uti or obstruction or diverticulitis. CT show diverticulitis wbc 15k. pt should be ok to go home on antibiotics and pain meds. Pt concerned about ability to pay so ruby
[2023-02-02] MEDS: KETOROLAC 15 MG/ML VIAL (*BKC) IV PUSH (10:46)
[2023-02-02] MEDS: levoFLOXacin 750 MG/D5W 150 ML 750 MG/150 ML BAG 100 MG IVPB (10:47)
== END 2023-02-02 13:34 | disposition home or self-care (01) ==
PROVIDERS: Emergency Medicine; Emergency Provider Emergency Medicine
DX: K57.32 Diverticulitis of large intestine without perforation or abscess without bleeding (principal); E78.5 Hyperlipidemia, unspecified; M79.7 Fibromyalgia; F41.9 Anxiety disorder, unspecified; Z87.891 Personal history of nicotine dependence
CPT/HCPCS: 36415; 74177; 80053; 81003; 81025; 83690; 85025; 96365; 96366; 96375; 99284; J1885; J1956; Q9967

== ENCOUNTER 2023-06-23 17:55 | Inpatient (IN) | payer OTHER, MEDICAID, SELFPAY ==
--- NOTE | ~2023-06-23 | CT_ITS ---
EXAMINATION: CT abdomen pelvis w con INDICATION: Rectal bleeding, history of GI bleeding TECHNIQUE: Computed tomographic images of the abdomen and pelvis were obtained after the administrati on of 100 cc of Omnipaque 350 intravenous contrast. The dose-length product (DLP) was 1235.07 mGy-cm. Automated exposure control and iterative reconstruction technique were employed. COMPARISON: 02/02/2023 FINDINGS: The lung bases are clear. The heart size is normal. There is poor contrast opacification. T he liver, spleen, pancreas, gallbladder, and adrenal glands are normal. The kidneys are unremarkable. No pathologically enlarged abdominal or pelvic lymph nodes are identified. No free intraperitoneal g as or evidence of bowel obstruction. The appendix is normal. Colonic diverticulosis is present withou t evidence of diverticulitis. There is a focal area of high attenuation near the hepatic flexure of t he colon. IMPRESSION: 1. Focal area of high attenuation near the hepatic flexure of the colon of unclear significance. Give n the poor contrast opacification, finding could reflect high density stool or possibly focal contras t extravasation. These findings were communicated to the Emergency Department at 0324 hours on 06/24/2023 by the [employer] Radiologist. Reviewed, dictated and finalized at location F. ODITIES BROKER IMPRESSION: 1. Focal area of high attenuation near the hepatic flexure of the colon of uncl ear significance. Given the poor contrast opacification, finding could reflect high density stool or possibly focal contrast extravasation. These findings were communicated to the Emergency Department at 0324 hours on by the [employer] Radiologist.
--- NOTE | ~2023-06-23 | NM_ITS ---
EXAMINATION: NM GI bleeding DATE: 06/24/2023 14:01 INDICATION: GI bleeding, possible extravasation on CT scan. TECHNIQUE: 23.9 mCi Tc 99m in vitro labeled red cells was administered intravenously. Scintigraphic images of the abdomen were obtained for one hour. COMPARISON: CT abdomen pelvis 06/23/2023. FINDINGS: No pattern of abnormal activity is seen in the abdomen or pelvis to suggest gastrointestina l hemorrhage. IMPRESSION: No evidence of active gastrointestinal hemorrhage. Reviewed, dictated and finalized at location K. NG MACHINE OPERATOR
[2023-06-23 18:54] VITALS: BP 136/60; PULSE 92; RESP 16; TEMP 36.7; O2SAT 100
[2023-06-23 21:03] VITALS: BP 161/81; PULSE 85; RESP 16; TEMP 36.6; O2SAT 100
[2023-06-23 22:04] VITALS: BP 143/67; RESP 18; TEMP 36.9; O2SAT 100
[2023-06-23 22:17] LABS: Basophils Absolute Auto 0.1 K/mm3 (0.0-0.1); Basophils Percent Auto 0.5 % (0.2-1.2); Eosinophils Absolute Auto 0.2 K/mm3 (0-0.3); Eosinophils Percent Auto 1.7 % (0-4.4); Hematocrit 21.5 % (37.0-47.0); Immature Granulocyte Percent A 0.7 % (0-0.5); Immature Platelet Fraction Pct 11.1 % (0.9-11.2); Lymphocytes Absolute Auto 4.41 K/mm3 (0.9-3.2); Lymphocytes Percent Auto 32.6 % (18.3-44.2); Mean Corpuscular Hemoglobin 20.3 pg (26-34); Mean Corpuscular Volume 75.2 fl (80-100); Monocytes Absolute Auto 1.1 K/mm3 (0.1-0.6); Monocytes Percent Auto 8.1 % (2.6-8.5); Neutrophils Absolute Auto 7.6 K/mm3 (1.3-6.7); Neutrophils Percent Auto 56.4 % (45.5-73.1); Nucleated Red Blood Cells Perc 0.3 % (0.0-0.2); Red Blood Count 2.86 M/mm3 (4.2-5.4); Red Cell Distribution Width 17.9 % (11.5-14.5); White Blood Count 13.5 K/mm3 (4.5-10.0)
[2023-06-23 22:23] LABS: Alanine Aminotransferase 18 U/L (6-35); Albumin Level 4.2 g/dL (3.5-5.1); Alkaline Phosphatase 64 U/L (38-126); Anion Gap 9 mmol/L (8-16); Aspartate Amino Transferase 25 U/L (14-36); Bilirubin,Total 0.3 mg/dL (0.2-1.3); Blood Urea Nitrogen 7 mg/dL (7-17); Carbon Dioxide 27 mmol/L (22-30); Chloride 102 mmol/L (98-107); Estimated CRCL calculation 127 ml/min; Estimated Glomerular Filt Rate > 60; Glucose 113 mg/dL (65-110); Lipase 54 U/L (23-300); Potassium 3.8 mmol/L (3.4-5.0); Sodium 138 mmol/L (137-145)
[2023-06-23 22:24] LABS: Prothrombin Time 13.3 Seconds (11.1-14.7)
[2023-06-23 22:52] LABS: Hemoglobin 5.8 g/dL (12.0-15.0)
[2023-06-23 22:55] LABS: Hypochromasia 2+ (NORMAL); Platelet Estimate Adequate (Adequate); Schistocytes None Seen (NORMAL)
[2023-06-23 22:56] LABS: Ovalocytes 1+ (NORMAL)
[2023-06-23 23:03] LABS: Partial Thromboplastin Time < 20.0 SECONDS (22.3-36.8)
[2023-06-23 23:09] VITALS: BP 144/82; PULSE 85; RESP 16; TEMP 36.6; O2SAT 100
--- NOTE | 2023-06-23 23:29 | ED.GIBLEED ---
HPI - GI Bleed General Chief complaint: GI Bleed Stated complaint: heavy vag bleeding, weakness/light headed Time Seen by Provider: 06/23/23 21:47 History of Present Illness HPI Narrative: Patient is a 42-year-old female presenting with rectal bleeding. Patient states that for the last 3-4 weeks she has had rectal bleeding with bowel movements. States that it is usually bright red is sometimes it is darker red and there are often clots. States that this happened several years ago and she had to be admitted for blood transfusions as well as GI evaluation. They did not find a clear answer and her symptoms did not recur until this last month. States that over the last several days she has been increasingly weak as well as lightheaded so she came in for evaluation. She denies any pain. She denies constipation or straining. No chest pain or shortness of breath. No further complaints. Related Data Home Medications Medication Instructions Recorded Confirmed venlafaxine 150 mg 150 mg PO DAILY 07/20/20 07/20/20 capsule,extended release 24 hr (Effexor XR) Allergies Allergy/AdvReac Type Severity Reaction Status Date / Time amoxicillin Allergy Unknown Hives Verified 02/02/23 06:46 Review of Systems Review of Systems: All systems reviewed & are unremarkable except as noted in HPI and below PMFSH Past Medical History Medical History Acute blood loss anemia Allergies Anxiety Bloating Fibromyalgia HLD (hyperlipidemia) Leg edema Lower abdominal pain Nausea Rectal bleeding Surgical History Surgical History H/O tubal ligation History of endometrial ablation Hx of arthroscopic knee surgery Right knee 2003 Family History Family History Father Diabetes mellitus Hypertension Mother Diabetes mellitus Hypertension Other Asthma Family history of attention deficit hyperactivity disorder (ADHD) Family history of obesity Social History Social History Smoking status: Former smoker Second hand tobacco smoke exposure: Yes Smoking end date: 05/22/14 Alcohol intake: never Substance use: never Substance use type: does not use Additional living arrangements comments: Lives in [place], [place] Occupation/Education: occupation Additional occupation/education comments: 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 EYES: PERRLA and EOMI. ENT: Mucous membranes moist. NECK: Supple. CHEST: Clear to auscultation. No respiratory distress. HEART: Regular rate and rhythm ABDOMEN: Soft, nontender, nondistended EXTREMITIES: Normal range of motion. SKIN: Warm, dry, no rash. NEURO: No focal deficits. Alert and oriented x3. PSYCH: Normal mood and affect. Course Vital Signs Vital signs: Vital Signs Temperature 98.0 F 06/23/23 18:54 Pulse Rate 92 06/23/23 18:54 Respiratory Rate 16 06/23/23 18:54 Blood Pressure 136/60 06/23/23 18:54 Pulse Oximetry 100 06/23/23 18:54 Oxygen Delivery Room Air 06/23/23 18:54 Temperature 97.6 F 06/24/23 04:42 Pulse Rate 70 06/24/23 06:29 Respiratory Rate 16 06/24/23 06:29 Blood Pressure 133/87 06/24/23 06:29 Pulse Oximetry 98 06/24/23 06:29 Oxygen Delivery Room Air 06/23/23 18:54 MDM - GI Bleed MDM Narrative Medical decision making narrative: 42-year-old female presenting with rectal bleeding. Vitals are stable. Exam remarkable for the above. Blood work is concerning for a hemoglobin of 5.8. 2 units of packed RBCs have been ordered. Patient requires admission for transf
[2023-06-24] VITALS (75 sets, daily range): BP systolic 109–171; BP diastolic 44–106; PULSE 69–95; RESP 13–28; TEMP 36.3–36.9; O2SAT 94–100; BMI 51.2
[2023-06-24] MEDS: SODIUM CHLORIDE 0.9% IV 250 ML 30 ML IV CONT ×2 (00:18→11:04)
[2023-06-24] MEDS: TUBING, BLOOD PLUM PUMP TUBING 1 EACH XX ×2 (00:18→02:45)
[2023-06-24 04:59] LABS: Basophils Absolute Auto 0.1 K/mm3 (0.0-0.1); Basophils Percent Auto 0.7 % (0.2-1.2); Eosinophils Absolute Auto 0.2 K/mm3 (0-0.3); Eosinophils Percent Auto 1.9 % (0-4.4); Hematocrit 25.7 % (37.0-47.0); Hemoglobin 7.4 g/dL (12.0-15.0); Immature Granulocyte Absolute 0.07 K/mm3 (0.00-0.031); Immature Granulocyte Percent A 0.7 % (0-0.5); Lymphocytes Absolute Auto 3.14 K/mm3 (0.9-3.2); Lymphocytes Percent Auto 29.6 % (18.3-44.2); Mean Corpuscular HGB Conc 28.8 g/dl (32-36); Mean Corpuscular Hemoglobin 22.5 pg (26-34); Mean Corpuscular Volume 78.1 fl (80-100); Mean Platelet Volume 10.7 fl (7.4-10.4); Monocytes Percent Auto 9.1 % (2.6-8.5); Neutrophils Absolute Auto 6.2 K/mm3 (1.3-6.7); Nucleated Red Blood Cells Perc 0.3 % (0.0-0.2); Platelet Count Result 371 k/mm3 (150-375); Red Blood Count 3.29 M/mm3 (4.2-5.4); Red Cell Distribution Width 19.4 % (11.5-14.5); White Blood Count 10.6 K/mm3 (4.5-10.0)
[2023-06-24 05:33] LABS: Platelet Estimate Adequate (Adequate)
[2023-06-24 05:34] LABS: Anisocytosis 1+ (NORMAL); Polychromasia 1+ (NORMAL); Schistocytes None Seen (NORMAL)
[2023-06-24] MEDS: HYDROmorphone HCL INJ (*CRX) 1 MG/ML SYR 0.5 MG IV PUSH (07:26)
--- NOTE | 2023-06-24 09:47 | PM.IMHP ---
H&P: HPI History of Present Illness Date/Time: 06/24/23 09:47 Chief Complaint: GI bleeding, weakness, dizziness Narrative: This is a 42-year-old female patient with history of chronic anemia and one episode prior of GI bleed that was worked up without acute findings. Patient states that for about a month or month and a half she has been having blood present in most stools sometimes brighter sometimes darker and often times with clots. Patient presented to the emergency department after weakness shortness of breath with exertion dizziness and increase in bloody stools. Patient denies any pain in her abdomen. She denies fever chills. Patient reports past history of depression, prior evaluation for elevated blood pressure without prescription for medication. Patient reports a headache but denies all other symptoms on review of systems. Review of Systems Review of Systems: All systems reviewed & are unremarkable except as noted in HPI and below PMFSH Past Medical History Medical History (Updated 06/24/23 @ 12:38 by Carlos Durant APRN) Acute blood loss anemia Allergies Anxiety Bloating Depression Fibromyalgia HLD (hyperlipidemia) Leg edema Lower abdominal pain Nausea Rectal bleeding Surgical History Surgical History H/O tubal ligation History of endometrial ablation Hx of arthroscopic knee surgery Right knee 2004 Family History Family History Father Diabetes mellitus Hypertension Mother Diabetes mellitus Hypertension Other Asthma Family history of attention deficit hyperactivity disorder (ADHD) Family history of obesity Social History Social History Smoking status: Former smoker Second hand tobacco smoke exposure: Yes Alcohol intake: never Substance use: never Substance use type: does not use Do You Feel Safe in your Home?: Yes Lack of Transportation: No Lack of Food: Never True Current Housing: I Have Housing Concerned About Future Housing: No Difficulty Paying Gas/Electric Bills: No Difficulty Paying for Meds: No Currently Unemployed: No Education: High School Diploma/GED Difficulty w/ Childcare or Family Care: No Additional living arrangements comments: Lives in [place], [place] Occupation/Education: occupation Additional occupation/education comments: 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[place], [place]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 [employer] Gender identity (if verbalized by the patient): Female Spiritual care concerns: No Meds Home Medications and Allergies Home Medications Medication Instructions Recorded Confirmed Type fluticasone propionate 50 2 spray intranasal DAILY #9.9 mL 04/17/20 06/24/23 Rx mcg/actuation nasal spray,suspension (Flonase Allergy Relief) venlafaxine 150 mg 225 mg PO DAILY 07/20/20 06/24/23 History capsule,extended release 24 hr (Effexor XR) ferrous sulfate 324 mg (65 mg 324 mg PO DAILY #30 tabs 01/27/23 06/24/23 Rx iron) tablet,delayed release furosemide 40 mg tablet 40 mg PO DAILY #7 tabs 01/27/23 06/24/23 Rx potassium chloride 10 mEq 10 meq PO DAILY #7 caps 01/27/23 06/24/23 Rx capsule,extended release hydrocodone 5 mg-acetaminophen 300 1 tablet PO Q6H PRN pain #14 tabs 02/02/23 06/24/23 Rx mg tablet lamotrigine 100 mg tablet 50 mg PO BID 06/24/23 06/24/23 History Allergies Allergy/AdvReac Type Severity Reaction Status Date / Time amoxicillin Allergy Unknown Hives Verified 02/02/23 06:46 Vital Signs Vital Signs - 24 hr 06/23/23 18:54 06/23/23 21:03 06/23/23 22:04 Temperature 36.7 C 36.6 C 36.9 C Pulse Rate 92 85 Respiratory Rate 16 16 18 Blood Pressure 136/60 161/81 H 143/67 H Pulse Oximetry 100 100 100 Oxygen Delivery Room Air 06/23/23 23:09 06/24/23 00:06 06/24/23 00:21 Temperature 36.6 C 36.7 C 36.9 C Pulse Rate 85 95
--- NOTE | 2023-06-24 10:30 | ADMGEN ---
This patient, Amarilys Jerez, was admitted to 2 Medical Room 256-. Patient/family oriented to hospital policies and general routines including ID bracelet, bed and alarms, visiting hours, pain management, procedures, bathroom and other care routines, personal items, smoking policy, room service/diet, and visiting hours. Information on how to activate the Rapid Response Team has been discussed. Patient/Family are encouraged to report perceived risks to care and to ask questions if they do not understand what they are told or what they should do.
[2023-06-24] MEDS: ACETAMINOPHEN 500 MG TABLET 1000 MG PO (11:04)
[2023-06-24] MEDS: ACETAMINOPHEN 325 MG TABLET 650 MG PO (15:11)
[2023-06-24] MEDS: lamoTRIgine 50 MG TABLET PO (17:20)
[2023-06-24 17:24] LABS: Hemoglobin 9.5 g/dL (12.0-15.0)
--- NOTE | 2023-06-24 18:13 | WPDGICN ---
Assessment and Plan Assessment and plan (1) Acute on chronic anemia: Code(s): D64.9 - Anemia, unspecified Status: Acute Assessment and Plan: no active bleeding per GIB scan but continue to monitor plan egd and colonoscopy Monday (last time had erosive gastritis and some diverticulosis without active bleeding), if scopes negative then consider capsule endoscopy as outpatient (2) Rectal bleeding: Code(s): K62.5 - Hemorrhage of anus and rectum Status: Acute Assessment and Plan: had hemorrhoids in past colonoscopy Monday (3) History of diverticulosis: Code(s): Z87.19 - Personal history of other diseases of the digestive system Status: Acute (4) Depression: Code(s): F32.A - Depression, unspecified Status: Acute GI Consult Note Consult date/time: 06/24/23 18:13 Reason for consult: rectal bleeding, worsening anemia HPI: Amarilys Jerez is a 42 year old female with history of EVANGELISTA, 2020 had EGD and colonoscopy, noted erosive gastritis without active bleeding, also mild diverticulosis and hemorrhoids. She is here with 1 month of intermittent rectal bleeding but last few days also feeling lightheaded and dizzy. She came to ER and admitted after hgb 5.8, baseline 8-9. She is feeling better after blood transfusion. She had CT scan- reviewed Focal area of high attenuation near the hepatic flexure of the colon of unclear significance. Given the poor contrast opacification, finding could reflect high density stool or possibly focal contrast extravasation and then GI bleed scan- negative for active bleeding. Review of Systems Constitutional: Constitutional: Reports fatigue and Reports weakness Eyes: Eyes: Denies blurry vision ENT: Reports Normal hearing present Cardiovascular: Cardiovascular: Denies chest pain and Reports lightheadedness Respiratory: Respiratory: Denies cough Gastrointestinal: Gastrointestinal: Reports hematochezia Genitourinary: Genitourinary: Denies urinary urgency Musculoskeletal: Musculoskeletal: Denies neck pain Integumentary/Breasts: Skin/Breast: Denies rash Neurologic: Denies Abnormal speech present Psychiatric: Psychiatric: Denies behavioral changes [facility] Past Medical History Medical History (Updated 06/24/23 @ 18:16 by Raf Greene MD) Acute blood loss anemia Acute on chronic anemia Allergies Anxiety Bloating Depression Fibromyalgia History of diverticulosis HLD (hyperlipidemia) Leg edema Lower abdominal pain Nausea Rectal bleeding Surgical History Surgical History H/O tubal ligation History of endometrial ablation Hx of arthroscopic knee surgery Right knee 2004 Family History Family History Father Diabetes mellitus Hypertension Mother Diabetes mellitus Hypertension Other Asthma Family history of attention deficit hyperactivity disorder (ADHD) Family history of obesity Social History Social History Smoking status: Former smoker Second hand tobacco smoke exposure: Yes Alcohol intake: never Substance use: never Substance use type: does not use Do You Feel Safe in your Home?: Yes Lack of Transportation: No Lack of Food: Never True Current Housing: I Have Housing Concerned About Future Housing: No Difficulty Paying Gas/Electric Bills: No Difficulty Paying for Meds: No Currently Unemployed: No Education: High School Diploma/GED Difficulty w/ Childcare or Family Care: No Additional living arrangements comments: Lives in [place], [place] Occupation/Education: occupation Additional occupation/education comments: 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
[2023-06-24 19:55] LABS: Hematocrit 31.6 % (37.0-47.0); Hemoglobin 9.6 g/dL (12.0-15.0)
[2023-06-25] VITALS: PULSE 105
[2023-06-25 00:26] LABS: Hematocrit 30.4 % (37.0-47.0); Hemoglobin 9.2 g/dL (12.0-15.0)
[2023-06-25] MEDS: ACETAMINOPHEN 325 MG TABLET 650 MG PO ×2 (00:48→15:26)
[2023-06-25 01:05] VITALS: BP 150/75; PULSE 73; RESP 16; TEMP 36.4; O2SAT 99
[2023-06-25 04:00] VITALS: PULSE 84
[2023-06-25 04:30] VITALS: BP 149/82; PULSE 70; RESP 18; TEMP 36.8; O2SAT 99
[2023-06-25 06:03] LABS: Basophils Absolute Auto 0.1 K/mm3 (0.0-0.1); Basophils Percent Auto 0.7 % (0.2-1.2); Eosinophils Absolute Auto 0.3 K/mm3 (0-0.3); Eosinophils Percent Auto 2.8 % (0-4.4); Hematocrit 30.1 % (37.0-47.0); Hemoglobin 8.9 g/dL (12.0-15.0); Immature Granulocyte Absolute 0.05 K/mm3 (0.00-0.031); Immature Granulocyte Percent A 0.6 % (0-0.5); Lymphocytes Absolute Auto 2.64 K/mm3 (0.9-3.2); Lymphocytes Percent Auto 29.1 % (18.3-44.2); Mean Corpuscular HGB Conc 29.6 g/dl (32-36); Mean Corpuscular Hemoglobin 23.2 pg (26-34); Mean Corpuscular Volume 78.4 fl (80-100); Mean Platelet Volume 10.6 fl (7.4-10.4); Monocytes Percent Auto 11.1 % (2.6-8.5); Neutrophils Absolute Auto 5.1 K/mm3 (1.3-6.7); Neutrophils Percent Auto 55.7 % (45.5-73.1); Nucleated Red Blood Cells Perc 0.3 % (0.0-0.2); Platelet Count Result 367 k/mm3 (150-375); Red Blood Count 3.84 M/mm3 (4.2-5.4); Red Cell Distribution Width 19.1 % (11.5-14.5); White Blood Count 9.1 K/mm3 (4.5-10.0)
[2023-06-25 06:11] LABS: INR 1.1; Prothrombin Time 14.2 Seconds (11.1-14.7)
[2023-06-25 06:20] LABS: Alanine Aminotransferase 15 U/L (6-35); Albumin Level 3.8 g/dL (3.5-5.1); Alkaline Phosphatase 70 U/L (38-126); Anion Gap 10 mmol/L (8-16); Aspartate Amino Transferase 20 U/L (14-36); Bilirubin,Total 0.9 mg/dL (0.2-1.3); Blood Urea Nitrogen 4 mg/dL (7-17); Carbon Dioxide 27 mmol/L (22-30); Chloride 102 mmol/L (98-107); Estimated CRCL calculation 130 ml/min; Estimated Glomerular Filt Rate > 60; Glucose 96 mg/dL (65-110); Magnesium 2.4 mg/dL (1.6-2.3); Potassium 3.6 mmol/L (3.4-5.0); Sodium 139 mmol/L (137-145)
[2023-06-25 06:32] LABS: Large Platelets Present; Platelet Estimate Adequate (Adequate)
[2023-06-25 06:33] LABS: Anisocytosis 1+ (NORMAL); Hypochromasia 1+ (NORMAL); Ovalocytes 1+ (NORMAL); Schistocytes None Seen (NORMAL)
--- NOTE | 2023-06-25 07:49 | PM.IMPN ---
Progress Note: A&P Assessment and Plan (1) GI bleed: Qualifiers: GI bleed type/associated pathology: unspecified gastrointestinal hemorrhage type Qualified Code(s): K92.2 - Gastrointestinal hemorrhage, unspecified Code(s): K92.2 - Gastrointestinal hemorrhage, unspecified Status: Acute Assessment and Plan: Patient with bloody stools for over a month now becoming quite symptomatic. CT scan abdomen pelvis with IV contrast shows possible area of extravasation versus high density stool in the colon at the hepatic flexure. Spoke to Gastroenterology on-call who plans to do colonoscopy prep tomorrow night for colonoscopy on Monday unless patient becomes unstable. Continue to transfuse to keep above 8 hemoglobin, avoid NSAIDs or other medications may thin the blood, nuclear med GI bleeding scan has been ordered. (2) Anemia: Qualifiers: Anemia type: unspecified type Qualified Code(s): D64.9 - Anemia, unspecified Code(s): D64.9 - Anemia, unspecified Status: Acute Assessment and Plan: Hemoglobin initially 5.8 on arrival to the ER. Hemoglobin 7.4 after 2 units of PRBCs. Will order another unit of PRBCs check H&H 2 hours after as well as again at midnight and with morning labs. Will transfuse to keep above 8. 2/4: Recheck H&H 1700 (3) Depression: Code(s): F32.A - Depression, unspecified Status: Acute Assessment and Plan: Continue venlafaxine and Lamictal Plan Admit to med tele. Transfuse to keep hemoglobin above 8 Gastroenterology consulted, plans EGD and colonoscopy on 06/26 Nuclear med GI bleed scan negative Time Spent With Patient Time with patient: 25 - 35 minutes Subjective Date/time seen: 06/25/23 07:49 Interval history: Patient reports doing well today. States that she did some nausea and some abdominal pain all over but that it was excessive. She remains on clear liquids with anticipated bowel prep for colonoscopy tomorrow. H&H stable after transfusion currently hemoglobin of 8.9 on morning labs. Will recheck this afternoon and again with morning labs. Patient did reports bloody stool overnight. Review of Systems Review of Systems: All systems reviewed & are unremarkable except as noted in HPI and below Exam Narrative: GENERAL: Well-appearing, well-nourished, and in no acute distress. HEAD: Normocephalic, atraumatic. ENT:? Mucous membranes moist. CHEST: Clear to auscultation.? No respiratory distress. HEART: Regular rate and rhythm. ? Normal peripheral pulses. ABDOMEN: Soft, Nondistended, mild tenderness generally to palpation no focal or peritoneal signs EXTREMITIES: Normal range of motion. Mild nonpitting lower extremity peripheral edema SKIN: Warm dry normal color NEURO: Alert and oriented x3. PSYCH: Normal mood and affect Objective Data Vital Signs Vital Signs: Vital Signs - 24 hr 06/24/23 07:51 06/24/23 08:22 06/24/23 08:30 Temperature Pulse Rate 80 76 78 Respiratory Rate 21 H 23 H 20 Blood Pressure 157/75 H Pulse Oximetry 97 95 97 Oxygen Delivery 06/24/23 08:45 06/24/23 09:09 06/24/23 09:15 Temperature Pulse Rate 75 75 78 Respiratory Rate 18 20 20 Blood Pressure Pulse Oximetry 98 98 98 Oxygen Delivery 06/24/23 09:30 06/24/23 09:36 06/24/23 09:45 Temperature Pulse Rate 82 78 78 Respiratory Rate 17 19 20 Blood Pressure 109/63 Pulse Oximetry 99 98 99 Oxygen Delivery 06/24/23 10:00 06/24/23 10:00 06/24/23 10:15 Temperature Pulse Rate 77 73 78 Respiratory Rate 15 13 19 Blood Pressure 125/79 Pulse Oximetry 98 98 99 Oxygen Delivery 06/24/23 10:47 06/24/23 10:48 06/24/23 11:10 Temperature 36.8 C Pulse Rate 78 80 Respiratory Rate 19 17 Blood Pressure 149/88 H Pulse Oximetry 99 98 Oxygen Delivery Room Air Room Air 06/24/23 11:25 06/24/23 12:00 06/24/23 12:25 Temperature 36.6 C 36.4 C Pulse Rate 73 74 75 Respiratory Rate 17 1
[2023-06-25] MEDS: lamoTRIgine 50 MG TABLET PO ×2 (09:15→17:30)
[2023-06-25] MEDS: VENLAFAXINE HCL XR 75 MG CAP.ER.24H 225 MG PO (09:15)
[2023-06-25] MEDS: FLUTICASONE PROPIONATE 0.05% NA SPR 16 GM BTL (*BKC) 2 SPRAY NASAL (09:15)
[2023-06-25 14:00] VITALS: BP 137/83; PULSE 77; RESP 14; TEMP 36.7; O2SAT 100
[2023-06-25 17:20] LABS: Hematocrit 31.5 % (37.0-47.0); Hemoglobin 9.2 g/dL (12.0-15.0)
[2023-06-25] MEDS: BISACODYL 5 MG TABLET EC 20 MG PO (17:30)
[2023-06-25] MEDS: polyethylene glycoL 3350 238 GM BOTTLE PO (17:34)
--- NOTE | 2023-06-25 18:13 | WPDGIPROGNO ---
Progress Note: A&P Assessment and Plan (1) Acute on chronic anemia: Code(s): D64.9 - Anemia, unspecified Status: Acute Assessment and Plan: will proceed with egd and colonoscopy tomorrow last colonoscopy also noted internal hemorrhoids- if present again then also will offer to do IRC better after blood transfusion if no major findings then will need capsule endoscopy as outpatient (2) Rectal bleeding: Code(s): K62.5 - Hemorrhage of anus and rectum Status: Acute Assessment and Plan: colonoscopy and irc tomorrow (3) GI bleed: Code(s): K92.2 - Gastrointestinal hemorrhage, unspecified Status: Acute (4) History of diverticulosis: Code(s): Z87.19 - Personal history of other diseases of the digestive system Status: Acute Subjective Date/time seen: 06/25/23 18:13 Interval history: noted some blood in stools stable otherwise Review of Systems Review of Systems: All systems reviewed & are unremarkable except as noted in HPI and below Exam Const: General: comfortable and no acute distress HENMT: Face/Nose/Sinus: Normal nares present Eyes: General: appearance normal, both eyes and all related structures Neck: Neck: supple Resp: Auscultation: clear to auscultation bilaterally Cardio: Rate: regular rate Rhythm: regular rhythm GI: Inspection: non-distended GI Palp: Yes Soft to palpation and No Tenderness to palpation present (GI) Auscultation: normal bowel sounds Skin: General skin exam: no rashes or lesions noted Neuro: Speech: normal speech Motor exam (neuro): 5/5 motor strength present throughout Extrem: General: normal to inspection Psych: Mental Status: mental status grossly normal Objective Data Vital Signs Vital Signs: Vital Signs - 24 hr 06/24/23 20:00 06/24/23 21:03 06/25/23 00:00 Temperature 97.6 F Pulse Rate 73 75 105 H Respiratory Rate 16 Blood Pressure 153/88 H Pulse Oximetry 100 Oxygen Delivery 06/25/23 01:05 06/25/23 04:00 06/25/23 04:30 Temperature 97.6 F 98.3 F Pulse Rate 73 84 70 Respiratory Rate 16 18 Blood Pressure 150/75 H 149/82 H Pulse Oximetry 99 99 Oxygen Delivery 06/25/23 09:15 06/25/23 14:00 Temperature 98.1 F Pulse Rate 77 Respiratory Rate 14 Blood Pressure 137/83 Pulse Oximetry 100 Oxygen Delivery Room Air Intake/Output Intake/Output: Intake & Output 06/22/23 06/23/23 06/24/23 06/25/23 23:59 23:59 23:59 23:59 Intake Total 2150 990 Balance 2150 990 Meds/Results Medications: Active Medications Generic Name Dose Route Start Last Admin Trade Name Freq PRN Reason Stop Dose Admin Acetaminophen 650 mg 06/24/23 14:54 06/25/23 15:26 Acetaminophen 325 Mg Tablet PO 650 mg Q4H PRN Administration Headache Fluticasone Propionate 2 spray 06/25/23 09:00 06/25/23 09:15 Fluticasone Propionate 0.05% Na Spr 16 Gm Btl (*Bkc) NASAL 2 spray DAILY BETH Administration Lamotrigine 50 mg 06/24/23 17:00 06/25/23 17:30 Lamotrigine 50 Mg Tablet PO 50 mg BID BETH Administration Magnesium Citrate 300 ml 06/26/23 02:00 Magnesium Citrate 300 Ml Btl PO 06/26/23 02:01 ONCE ONE Venlafaxine HCl 225 mg 06/25/23 09:00 06/25/23 09:15 Venlafaxine Hcl Xr 75 Mg Cap.Er.24h PO 225 mg DAILY BETH Administration Radiology Results: ITS Impressions Abdomen/Pelvis CT 06/24/23 07:01 IMPRESSION: 1. Focal area of high attenuation near the hepatic flexure of the colon of unclear significance. Given the poor contrast opacification, finding could reflect high density stool or possibly focal contrast extravasation. These findings were communicated to the Emergency Department at 0324 hours on 06/24/2023 by the [facility] Radiologist. GI Bleed Scan Nuclear Medicine 06/24/23 14:18 IMPRESSION: No evidence of active gastrointestinal hemorrhage. Labs Labs: Laboratory Results - last 24 hr 06/24/23 06/25/23
[2023-06-25 22:00] VITALS: BP 146/86; PULSE 74; RESP 20; TEMP 36.2; O2SAT 100
[2023-06-26] VITALS (7 sets, daily range): BP systolic 100–149; BP diastolic 57–80; PULSE 63–77; RESP 16–22; TEMP 36–36.6; O2SAT 97–100
[2023-06-26] MEDS: MAGNESIUM CITRATE 300 ML BTL PO ×2 (01:10→07:04)
[2023-06-26 05:37] LABS: Basophils Percent Auto 0.4 % (0.2-1.2); Eosinophils Absolute Auto 0.3 K/mm3 (0-0.3); Eosinophils Percent Auto 3.1 % (0-4.4); Hematocrit 30.1 % (37.0-47.0); Hemoglobin 8.7 g/dL (12.0-15.0); Immature Granulocyte Absolute 0.08 K/mm3 (0.00-0.031); Immature Granulocyte Percent A 0.8 % (0-0.5); Lymphocytes Absolute Auto 2.46 K/mm3 (0.9-3.2); Lymphocytes Percent Auto 24.9 % (18.3-44.2); Mean Corpuscular HGB Conc 28.9 g/dl (32-36); Mean Corpuscular Volume 79.6 fl (80-100); Mean Platelet Volume 10.1 fl (7.4-10.4); Monocytes Absolute Auto 0.9 K/mm3 (0.1-0.6); Monocytes Percent Auto 9.2 % (2.6-8.5); Neutrophils Absolute Auto 6.1 K/mm3 (1.3-6.7); Neutrophils Percent Auto 61.6 % (45.5-73.1); Nucleated Red Blood Cells Perc 0.2 % (0.0-0.2); Platelet Count Result 375 k/mm3 (150-375); Red Blood Count 3.78 M/mm3 (4.2-5.4); White Blood Count 9.9 K/mm3 (4.5-10.0)
[2023-06-26 05:55] LABS: Alanine Aminotransferase 17 U/L (6-35); Albumin Level 3.8 g/dL (3.5-5.1); Alkaline Phosphatase 71 U/L (38-126); Anion Gap 4 mmol/L (8-16); Aspartate Amino Transferase 18 U/L (14-36); Bilirubin,Total 0.7 mg/dL (0.2-1.3); Blood Urea Nitrogen 3 mg/dL (7-17); Carbon Dioxide 29 mmol/L (22-30); Chloride 104 mmol/L (98-107); Estimated CRCL calculation 130 ml/min; Estimated Glomerular Filt Rate > 60; Glucose 112 mg/dL (65-110); Magnesium 2.9 mg/dL (1.6-2.3); Potassium 3.5 mmol/L (3.4-5.0); Sodium 137 mmol/L (137-145)
[2023-06-26 05:59] LABS: Hypochromasia 2+ (NORMAL); Platelet Estimate Adequate (Adequate); Schistocytes None Seen (NORMAL)
[2023-06-26] MEDS: ACETAMINOPHEN 325 MG TABLET 650 MG PO ×2 (07:01→17:14)
[2023-06-26] MEDS: LACTATED RINGERS 1,000 ML 75 ML IV CONT (11:15)
[2023-06-26] MEDS: LACTATED RINGERS 1,000 ML 150 ML IV CONT (12:51)
--- NOTE | 2023-06-26 13:00 | WPDANESEPPF ---
Anes - Initial Pre Proc Eval Procedure: Operation Date: 06/26/23 15:30 Proposed Procedures p Esophagogastroduodenoscopy & Colonoscopy - Raf Greene MD [facility] Hemorrhoid Treatment - Raf Greene MD Date/Time: 06/26/23 13:00 Surgeon: Essie Duarte DO Pre Op Diagnosis: Rectal Bleeding Patient Data Age: 42 Gender: F Height: 1.57 m Weight: 127.1 kg Last Vital Signs Temp 97.4 F L 06/26/23 12:45 Pulse 65 06/26/23 12:45 Resp 16 06/26/23 12:45 BP 149/64 H 06/26/23 12:45 Pulse Ox 100 06/26/23 12:45 O2 Del Method Room Air 06/26/23 12:45 Allergies Allergy/AdvReac Type Severity Reaction Status Date / Time amoxicillin Allergy Unknown Hives Verified 06/26/23 12:38 Home Medications Medication Instructions Recorded Confirmed Type fluticasone propionate 50 2 spray intranasal DAILY #9.9 mL 04/17/20 06/26/23 Rx mcg/actuation nasal spray,suspension (Flonase Allergy Relief) venlafaxine 150 mg 225 mg PO DAILY 07/20/20 06/26/23 History capsule,extended release 24 hr (Effexor XR) ferrous sulfate 324 mg (65 mg 324 mg PO DAILY #30 tabs 01/27/23 06/26/23 Rx iron) tablet,delayed release furosemide 40 mg tablet 40 mg PO DAILY #7 tabs 01/27/23 06/26/23 Rx potassium chloride 10 mEq 10 meq PO DAILY #7 caps 01/27/23 06/26/23 Rx capsule,extended release hydrocodone 5 mg-acetaminophen 300 1 tablet PO Q6H PRN pain #14 tabs 02/02/23 06/26/23 Rx mg tablet lamotrigine 100 mg tablet 50 mg PO BID 06/24/23 06/26/23 History Laboratory Tests 06/25/23 06/26/23 17:15 05:28 WBC 9.9 K/mm3 (4.5-10.0) RBC 3.78 L M/mm3 (4.2-5.4) Hgb 9.2 L g/dL 8.7 L g/dL (12.0-15.0) (12.0-15.0) Hct 31.5 L % 30.1 L % (37.0-47.0) (37.0-47.0) MCV 79.6 L fl (80-100) MCH 23.0 L pg (26-34) MCHC 28.9 L g/dl (32-36) RDW 20.0 H % (11.5-14.5) Plt Count 375 k/mm3 (150-375) MPV 10.1 fl (7.4-10.4) Immature Gran % (Auto) 0.8 H % (0-0.5) Neut % (Auto) 61.6 % (45.5-73.1) Lymph % (Auto) 24.9 % (18.3-44.2) [place] % (Auto) 9.2 H % (2.6-8.5) Eos % (Auto) 3.1 % (0-4.4) Baso % (Auto) 0.4 % (0.2-1.2) Lymph # (Auto) 2.46 K/mm3 (0.9-3.2) [place] # (Auto) 0.9 H K/mm3 (0.1-0.6) Eos # (Auto) 0.3 K/mm3 (0-0.3) Baso # (Auto) 0.0 K/mm3 (0.0-0.1) Abs Immat Gran (auto) 0.08 H K/mm3 (0.00-0.031) Absolute Neuts (auto) 6.1 K/mm3 (1.3-6.7) Absolute Nucleated RBC 0.0 K/mm3 (0.0-0.012) Nucleated RBC % 0.2 % (0.0-0.2) Platelet Estimate Adequate (Adequate) Hypochromasia 2+ (NORMAL) Schistocytes None seen (NORMAL) Sodium 137 mmol/L (137-145) Potassium 3.5 mmol/L (3.4-5.0) Chloride 104 mmol/L (98-107) Carbon Dioxide 29 mmol/L (22-30) Anion Gap 4 L mmol/L (8-16) BUN 3 L mg/dL (7-17) Creatinine 0.60 L mg/dL (0.7-1.0) Estim Creat Clear Calc 130 ml/min Estimated GFR > 60 (59 - ) Glucose 112 H mg/dL (65-110) Calcium 9.0 mg/dL (8.4-10.2) Magnesium 2.9 H mg/dL (1.6-2.3) Total Bilirubin 0.7 mg/dL (0.2-1.3) AST 18 U/L (14-36) ALT 17 U/L (6-35) Alkaline Phosphatase 71 U/L (38-126) Total Protein 7.0 g/dL (6.3-8.2) Albumin 3.8 g/dL (3.5-5.1) Patient hx anesthesia problems: none Family hx anesthesia problems: none Results Review: All pre-operative results and documents have been reviewed as part of the pre-operative evaluation. [facility] Past Medical History Medical History (Updated 06/24/23 @ 18:16 by Raf Greene MD) Acute blood loss anemia Acute on chronic anemia Allergies Anxiety Bloating Depression Fibromyalgia History of diverticulosis HLD (hyperlipidemia) Leg edema Lower abdominal pain Nausea
--- NOTE | 2023-06-26 13:14 | SUR.OPER ---
EGD:START- 1313, END-1316. COLON: START-1321, END-1331
--- NOTE | 2023-06-26 13:35 | W.PM.PROC2 ---
Procedure Note - Detailed Date of Procedure 06/26/23 Pre-op Diagnosis Rectal Bleeding Post-op Diagnosis Same Procedure Performed irc of internal hemorrhoids Surgeon Raf Greene MD Anesthesia MAC (also had scopes) Findings see below Description of Procedure noted small size internal hemorrhoids, no fissure, no bleeding. Used anoscope and then introduced IRC probe to treat hemorrhoids at 1.5 seconds x5
--- NOTE | 2023-06-26 14:23 | PM.IMPN ---
Progress Note: A&P Assessment and Plan (1) GI bleed: Qualifiers: GI bleed type/associated pathology: unspecified gastrointestinal hemorrhage type Qualified Code(s): K92.2 - Gastrointestinal hemorrhage, unspecified Code(s): K92.2 - Gastrointestinal hemorrhage, unspecified Status: Acute Assessment and Plan: Patient with bloody stools for over a month now becoming quite symptomatic. CT scan abdomen pelvis with IV contrast shows possible area of extravasation versus high density stool in the colon at the hepatic flexure. Spoke to Gastroenterology on-call who plans to do colonoscopy prep tomorrow night for colonoscopy on Monday unless patient becomes unstable. Continue to transfuse to keep above 8 hemoglobin, avoid NSAIDs or other medications may thin the blood, nuclear med GI bleeding scan has been ordered. (2) Anemia: Qualifiers: Anemia type: unspecified type Qualified Code(s): D64.9 - Anemia, unspecified Code(s): D64.9 - Anemia, unspecified Status: Acute Assessment and Plan: Hemoglobin initially 5.8 on arrival to the ER. Hemoglobin 7.4 after 2 units of PRBCs. Will order another unit of PRBCs check H&H 2 hours after as well as again at midnight and with morning labs. Will transfuse to keep above 8. 06/25: Recheck H&H 1700 06/26: Remains stable status post 3 units PRBCs total (3) Depression: Code(s): F32.A - Depression, unspecified Status: Acute Assessment and Plan: Continue venlafaxine and Lamictal Plan Gastroenterology consulted, plans EGD and colonoscopy on 06/26 Nuclear med GI bleed scan negative Disposition pending EGD and colonoscopy results Time Spent With Patient Time with patient: 25 - 35 minutes Subjective Date/time seen: 06/26/23 14:23 Interval history: 06/25: Patient reports doing well today. States that she did some nausea and some abdominal pain all over but that it was excessive. She remains on clear liquids with anticipated bowel prep for colonoscopy tomorrow. H&H stable after transfusion currently hemoglobin of 8.9 on morning labs. Will recheck this afternoon and again with morning labs. Patient did reports bloody stool overnight. 06/26: Patient have EGD and colonoscopy today. She has been fluids due to NPO status which will be continued until she resumes regular diet. Disposition depending findings GI testing. Patient complaining of some continued nausea and generalized abdominal discomfort. Review of Systems Review of Systems: All systems reviewed & are unremarkable except as noted in HPI and below Exam Narrative: GENERAL: Well-appearing, well-nourished, and in no acute distress. HEAD: Normocephalic, atraumatic. ENT:? Mucous membranes moist. CHEST: Clear to auscultation.? No respiratory distress. HEART: Regular rate and rhythm. ? Normal peripheral pulses. ABDOMEN: Soft, Nondistended, mild tenderness generally to palpation no focal or peritoneal signs EXTREMITIES: Normal range of motion. Mild nonpitting lower extremity peripheral edema SKIN: Warm dry normal color NEURO: Alert and oriented x3. PSYCH: Normal mood and affect Objective Data Vital Signs Vital Signs: Vital Signs - 24 hr 06/25/23 22:00 06/25/23 20:00 06/26/23 06:00 Temperature 36.2 C L 36.0 C L Pulse Rate 74 68 Respiratory Rate 20 20 Blood Pressure 146/86 H 120/57 L Pulse Oximetry 100 99 Oxygen Delivery Room Air 06/26/23 08:00 06/26/23 12:45 06/26/23 13:32 Temperature 36.3 C L Pulse Rate 65 76 Respiratory Rate 16 19 Blood Pressure 149/64 H 100/58 L Pulse Oximetry 100 100 Oxygen Delivery Room Air Room Air Room Air 06/26/23 13:42 06/26/23 13:52 Temperature Pulse Rate 73 63 Respiratory Rate 22 H 16 Blood Pressure 130/63 129/66 Pulse Oximetry 100 100 Oxygen Delivery Room Air Room Air Intake/Output Intake/Output: Intake & Output 06/23/23 06/24/23 06/25/23 06/26/23 23:59 23:59 23:59 23:59 In
[2023-06-26] MEDS: lamoTRIgine 50 MG TABLET PO (17:16)
[2023-06-26] MEDS: FLUTICASONE PROPIONATE 0.05% NA SPR 16 GM BTL (*BKC) 2 SPRAY NASAL (17:16)
[2023-06-26] MEDS: VENLAFAXINE HCL XR 75 MG CAP.ER.24H 225 MG PO (17:16)
[2023-06-26] MEDS: SIMETHICONE 80 MG TAB.CHEW PO (21:25)
[2023-06-26] MEDS: DICYCLOMINE HCL 10 MG CAPSULE 20 MG PO (21:25)
[2023-06-27] MEDS: SIMETHICONE 80 MG TAB.CHEW PO (03:30)
[2023-06-27] MEDS: DICYCLOMINE HCL 10 MG CAPSULE 20 MG PO (03:31)
[2023-06-27 05:37] LABS: Basophils Absolute Auto 0.1 K/mm3 (0.0-0.1); Basophils Percent Auto 0.5 % (0.2-1.2); Eosinophils Absolute Auto 0.2 K/mm3 (0-0.3); Eosinophils Percent Auto 2.5 % (0-4.4); Hematocrit 29.1 % (37.0-47.0); Hemoglobin 8.5 g/dL (12.0-15.0); Immature Granulocyte Absolute 0.08 K/mm3 (0.00-0.031); Immature Granulocyte Percent A 0.8 % (0-0.5); Lymphocytes Absolute Auto 2.78 K/mm3 (0.9-3.2); Mean Corpuscular HGB Conc 29.2 g/dl (32-36); Mean Corpuscular Hemoglobin 23.5 pg (26-34); Mean Corpuscular Volume 80.4 fl (80-100); Mean Platelet Volume 10.8 fl (7.4-10.4); Monocytes Absolute Auto 0.8 K/mm3 (0.1-0.6); Monocytes Percent Auto 8.3 % (2.6-8.5); Neutrophils Absolute Auto 5.7 K/mm3 (1.3-6.7); Neutrophils Percent Auto 58.9 % (45.5-73.1); Platelet Count Result 353 k/mm3 (150-375); Red Blood Count 3.62 M/mm3 (4.2-5.4); Red Cell Distribution Width 20.3 % (11.5-14.5); White Blood Count 9.6 K/mm3 (4.5-10.0)
[2023-06-27 05:48] LABS: Alanine Aminotransferase 16 U/L (6-35); Albumin Level 3.8 g/dL (3.5-5.1); Alkaline Phosphatase 73 U/L (38-126); Anion Gap 16 mmol/L (8-16); Aspartate Amino Transferase 18 U/L (14-36); Bilirubin,Total 0.8 mg/dL (0.2-1.3); Blood Urea Nitrogen 5 mg/dL (7-17); Calcium 8.8 mg/dL (8.4-10.2); Carbon Dioxide 28 mmol/L (22-30); Chloride 102 mmol/L (98-107); Estimated CRCL calculation 113 ml/min; Estimated Glomerular Filt Rate > 60; Glucose 95 mg/dL (65-110); Magnesium 2.5 mg/dL (1.6-2.3); Potassium 3.4 mmol/L (3.4-5.0); Sodium 146 mmol/L (137-145)
[2023-06-27 06:00] VITALS: BP 119/66; PULSE 67; RESP 20; TEMP 36.2; O2SAT 100
[2023-06-27 06:16] LABS: Anisocytosis 2+ (NORMAL); Hypochromasia 2+ (NORMAL); Microcytosis 1+ (NORMAL); Platelet Estimate Adequate (Adequate); Schistocytes None Seen (NORMAL)
[2023-06-27 07:10] LABS: Iron 26 ug/dL (37-170)
[2023-06-27 07:20] LABS: Percent Iron Saturation 6 % (20-50)
--- NOTE | 2023-06-27 08:48 | PM.DS ---
DS: Admitting Diagnosis Discharge Date 06/27/2023 Admitting Diagnosis GI bleed, anemia, depression DS: Discharge Diagnosis Discharge Diagnosis (1) GI bleed: Qualifiers: GI bleed type/associated pathology: unspecified gastrointestinal hemorrhage type Qualified Code(s): K92.2 - Gastrointestinal hemorrhage, unspecified Code(s): K92.2 - Gastrointestinal hemorrhage, unspecified Status: Acute (2) Depression: Code(s): F32.A - Depression, unspecified Status: Acute (3) Internal hemorrhoid: Code(s): K64.8 - Other hemorrhoids Status: Acute (4) History of diverticulosis: Code(s): Z87.19 - Personal history of other diseases of the digestive system Status: Acute (5) Acute on chronic anemia: Code(s): D64.9 - Anemia, unspecified Status: Acute (6) Gastritis: Code(s): K29.70 - Gastritis, unspecified, without bleeding Status: Acute DS: Summary Hospital Course Hospital Course: this is a 42-year-old female patient with history of chronic anemia and prior GI bleed presents to the hospital with over 1 month bleeding with stools. Patient has become weak short of breath on exertion and fatigued over this length of. She had prior episode of GI bleeding several years an unremarkable workup problems since until this past month or so. When patient was evaluated in the emergency hemoglobin was 0.8 and was concerning finding on CT scan stroke verses density stool. Patient was admitted to hospitalist service with GI consult. She received a total 3 units of PRBCs to keep even globin above 8. She had EGD and colonoscopy. EGD showed some gastritis and colonoscopy showed diverticulosis without bleeding and internal hemorrhoids. During procedure patient underwent IR see for internal hemorrhoids. She had some bloating and gas pains for which she received simethicone and Bentyl with improvement. Today labs remain stable. GI recommends hematology consult after discharge so contact information was provided to patient to schedule this appointment. Additionally, iron studies show low saturation and low total iron. We will start patient on iron tablets as well as pantoprazole Bentyl and simethicone upon discharge. Status at Discharge Cognitive/behavioral status at discharge: awake alert oriented and pleasant Functional status at discharge: independent ambulation Overall status at discharge: patient is progressing back to baseline Time Spent with Patient Time attestation: Total time spent providing and/or coordinating discharge services: 35 minutes Time spent: Greater than 30 minutes Exam Narrative: GENERAL: Well-appearing, well-nourished, and in no acute distress. HEAD: Normocephalic, atraumatic. ENT:? Mucous membranes moist. CHEST: Clear to auscultation.? No respiratory distress. HEART: Regular rate and rhythm. ? Normal peripheral pulses. ABDOMEN: Soft, Nondistended, mild tenderness generally to palpation no focal or peritoneal signs EXTREMITIES: Normal range of motion. Mild nonpitting lower extremity peripheral edema SKIN: Warm dry normal color NEURO: Alert and oriented x3. PSYCH: Normal mood and affect DS: Data Data Completed and Pending Pending studies at discharge: Pending at discharge 06/26/23 13:19 Surgical [PTH] Routine Labs on day of discharge: Labs from last 24 hours 06/27/23 06/27/23 04:59 04:56 WBC 9.6 RBC 3.62 L Hgb 8.5 L Hct 29.1 L MCV 80.4 MCH 23.5 L MCHC 29.2 L RDW 20.3 H Plt Count 353 MPV 10.8 H Immature Gran % (Auto) 0.8 H Neut % (Auto) 58.9 Lymph % (Auto) 29.0 [place] % (Auto) 8.3 Eos % (Auto) 2.5 Baso % (Auto) 0.5 Lymph # (Auto) 2.78 [place] # (Auto) 0.8 H Eos # (Auto) 0.2 Baso # (Auto) 0.1 Abs Immat Gran (auto) 0.08 H Absolute Neuts (auto) 5.7 Absolute Nucleated RBC 0.0 Nucleated RBC % 0.0 Platelet Estimate Adequate Hypochromasia 2+ Anisocytosis 2+
[2023-06-27] MEDS: FLUTICASONE PROPIONATE 0.05% NA SPR 16 GM BTL (*BKC) 2 SPRAY NASAL (08:52)
[2023-06-27] MEDS: VENLAFAXINE HCL XR 75 MG CAP.ER.24H 225 MG PO (08:52)
[2023-06-27] MEDS: lamoTRIgine 50 MG TABLET PO (08:52)
[2023-06-27] MEDS: PANTOPRAZOLE SOD SESQUIHYDRATE 20 MG TAB PO (08:52)
--- NOTE | 2023-06-27 08:53 | P.CDI_ITS ---
CDI Query Clarification Request Documentation in the medical record indicates that this patient has: BMI 51.2 Based on your medical judgement , can you further clarify in the progress notes the diagnosis associated with these findings, if known, such as: * Overweight * Obesity * Morbid Obesity * Other condition (please specify) * None of the above/ Not applicable <Livier Sampson RN - Last Filed: 06/27/23 08:56> Clarified Diagnosis Clarified Diagnosis: Morbid obesity based on BMI 51.2 <Carlos Durant APRN - Last Filed: 06/27/23 09:06>
--- NOTE | 2023-06-27 13:39 | PCCCNOTE ---
On 06/27/23, the student, [Nancy Holcomb], provided care and completed [facility] documentation on this patient. I have reviewed the student's documentation and agree with the findings.
== END 2023-06-27 11:10 | disposition home or self-care (01) | DRG 394 ==
LOC: ANHED 23:32 → ANH3MEDSUR 06-24 00:55 → ANH2MED 06-24 10:02
PROVIDERS: Internal Medicine Gastroenterology; Student in an Organized Health Care Education/Training Program; Admitting Provider Internal Medicine; Emergency Provider Emergency Medicine; Visit Provider Nurse Practitioner
PROC: 0DJ08ZZ Inspection of Upper Intestinal Tract, Via Natural or Artificial Opening Endoscopic (ICD-10-PCS; CPT 43235; principal; 2023-06-26 15:30)
PROC: 0DB68ZX Excision of Stomach, Via Natural or Artificial Opening Endoscopic, Diagnostic (ICD-10-PCS; CPT 46930; 2023-06-26 15:30)
DX: K64.8 Other hemorrhoids (principal); D62 Acute posthemorrhagic anemia; Z68.43 Body mass index [BMI] 50.0-59.9, adult; E66.01 Morbid (severe) obesity due to excess calories; K57.30 Diverticulosis of large intestine without perforation or abscess without bleeding; E78.5 Hyperlipidemia, unspecified; M79.7 Fibromyalgia; F41.9 Anxiety disorder, unspecified; F32.A Depression, unspecified; Z87.891 Personal history of nicotine dependence
CPT/HCPCS: 36415; 36430; 74177; 78278; 80053; 82607; 82746; 83540; 83550; 83690; 83735; 85014; 85018; 85025; 85055; 85610; 85730; 86850; 86900; 86901; 86923; 88305; 96361; 96374; 99285; A9270; A9560; G0378; J1170; J2704; J7050; J7120; P9016; Q9967

== ENCOUNTER 2023-07-04 12:04 | Outpatient (CLI) | payer OTHER, MEDICAID, SELFPAY ==
[2023-07-04 12:27] LABS: Basophils Absolute Auto 0.1 K/mm3 (0.0-0.1); Basophils Percent Auto 0.7 % (0.2-1.2); Eosinophils Absolute Auto 0.2 K/mm3 (0-0.3); Eosinophils Percent Auto 2.3 % (0-4.4); Hematocrit 26.7 % (37.0-47.0); Hemoglobin 7.7 g/dL (12.0-15.0); Immature Granulocyte Absolute 0.05 K/mm3 (0.00-0.031); Immature Granulocyte Percent A 0.6 % (0-0.5); Lymphocytes Absolute Auto 2.18 K/mm3 (0.9-3.2); Lymphocytes Percent Auto 26.8 % (18.3-44.2); Mean Corpuscular HGB Conc 28.8 g/dl (32-36); Mean Corpuscular Hemoglobin 22.6 pg (26-34); Mean Corpuscular Volume 78.3 fl (80-100); Mean Platelet Volume 9.8 fl (7.4-10.4); Monocytes Absolute Auto 0.6 K/mm3 (0.1-0.6); Monocytes Percent Auto 7.6 % (2.6-8.5); Platelet Count Result 393 k/mm3 (150-375); Red Blood Count 3.41 M/mm3 (4.2-5.4); Red Cell Distribution Width 19.9 % (11.5-14.5); White Blood Count 8.1 K/mm3 (4.5-10.0)
[2023-07-04 12:35] LABS: Anisocytosis 1+ (NORMAL); Microcytosis 1+ (NORMAL); Ovalocytes 1+ (NORMAL); Platelet Estimate Adequate (Adequate); Poikilocytosis 1+ (NORMAL); Schistocytes None Seen (NORMAL)
[2023-07-04 16:18] LABS: Iron 26 ug/dL (37-170)
[2023-07-04 16:22] LABS: Alanine Aminotransferase 18 U/L (6-35); Albumin Level 4.2 g/dL (3.5-5.1); Alkaline Phosphatase 79 U/L (38-126); Anion Gap 7 mmol/L (8-16); Aspartate Amino Transferase 23 U/L (14-36); Bilirubin,Total 0.7 mg/dL (0.2-1.3); Blood Urea Nitrogen 9 mg/dL (7-17); Calcium 9.4 mg/dL (8.4-10.2); Carbon Dioxide 27 mmol/L (22-30); Chloride 106 mmol/L (98-107); Estimated Glomerular Filt Rate > 60; Glucose 95 mg/dL (65-110); Lactate Dehydrogenase 167 U/L (120-246); Potassium 4.3 mmol/L (3.4-5.0); Sodium 140 mmol/L (137-145)
[2023-07-04 16:30] LABS: Percent Iron Saturation 5 % (20-50)
[2023-07-04 16:54] LABS: Ferritin 5.37 ng/mL (6.24-137)
[2023-07-04 21:32] LABS: Folic Acid 5.5 ng/mL (2.76->20)
[2023-07-07 14:03] LABS: Methylmalonic Acid 124 nmol/L (87-318)
[2023-07-10 14:53] LABS: Soluble Transferrin Receptor 4.85 mg/L (0.76-1.76)
== END 2023-07-04 12:05 | disposition home or self-care (01) ==
PROVIDERS: Nurse Practitioner Family; Visit Provider Internal Medicine Hematology & Oncology
DX: D50.0 Iron deficiency anemia secondary to blood loss (chronic) (principal)
CPT/HCPCS: 36415; 80053; 82607; 82728; 82746; 83540; 83550; 83615; 83921; 84238; 85025